=== PATIENT | female | born 1965 | race American Indian/Alaskan Native ===

== ENCOUNTER 2021-12-13 11:34 | Inpatient (IN) | payer SELFPAY ==
--- NOTE | 2021-12-13 13:52 | Event Note ---
ED Screening Note ED Screening Note: jyoti morphine tyler meds metformin 500 bid banophen 25 bid duloxetine er 30 daily comes in out of metformin for 1 week bg 94 pt having difficulty answering questions no focal motor def recent tx for uti - has finished bottle of amox on her person lives with sister post menopausal pmh dm obese psh T/A This initial assessment/diagnostic orders/clinical plan/treatment(s) is/are subject to change based on patients health status, clinical progression and re- assessment by fellow clinical providers in the ED. Further treatment and workup at subsequent clinical providers discretion. Patient/guardian urged not to elope from the ED as their condition may be serious if not clinically assessed and managed. Initial orders include: labs ct ua
--- NOTE | 2021-12-13 14:41 | XRay Report ---
CHEST 2 VIEWS INDICATION / CLINICAL INFORMATION: weakness. COMPARISON: None available. FINDINGS: SUPPORT DEVICES: None. HEART / MEDIASTINUM: No significant abnormality. LUNGS / PLEURA: No significant pulmonary or pleural abnormality. No pneumothorax. ADDITIONAL FINDINGS: No significant additional findings. IMPRESSION: 1. No acute findings. Signer Name: Rafat Rubio MD Signed: 12/13/2021 2:37 PM Workstation Name: [id number]
[2021-12-13 14:45] LABS: Basophils # (Auto) 0.1 K/mm3 (0.0-0.1); Eosinophils # (Auto) 0.1 K/mm3 (0.0-0.4); Eosinophils % (Auto) 1.3 % (0.0-4.3); Hematocrit 33.6 % (30.3-42.9); Hemoglobin 9.9 gm/dl (10.1-14.3); Lymphocytes # (Auto) 2.5 K/mm3 (1.2-5.4); Lymphocytes % (Auto) 39.5 % (13.4-35.0); Mean Corpuscular HGB Conc 30 % (30-34); Mean Corpuscular Volume 69 fl (79-97); Monocytes # (Auto) 0.6 K/mm3 (0.0-0.8); Monocytes % (Auto) 9.1 % (0.0-7.3); Platelet Count 152 K/mm3 (140-440); Red Cell Distribution Width 20.7 % (13.2-15.2)
[2021-12-13 15:47] LABS: Alanine Aminotransferase 9 units/L (7-56); Albumin 4.3 g/dL (3.9-5); BUN/Creatinine Ratio 10; Blood Urea Nitrogen 9 mg/dL (7-17); Calcium 8.7 mg/dL (8.4-10.2); Hemolysis Index 3
[2021-12-13] MEDS ORDERED: POTASSIUM CHLORIDE ER 20 MEQ TAB PO ONE (16:04)
--- NOTE | 2021-12-13 16:21 | Emergency Department Report ---
HPI - General Chief Complaint: Altered Mental Status Time Seen by Provider: 12/13/21 13:48 - HPI HPI: 56-year-old female with history of depression/bipolar disorder and DM2 who presented today due to 1 week of lightheadedness and generalized weakness. The patient states that the symptoms started when she ran out of her Metformin approximately 1 week ago. She has had generalized nausea but no vomiting. She feels very weak and lightheaded as if she is about to pass out. She was recently treated for UTI with Cefpodoxime which she has since finished. She denies any recent traumatic injury. The patient also says she has had some word finding difficulty/confusion over this period of time but this is only elicited from her when prompted. Apparently when she was seen by the FAST FOOD WORKER she had word finding difficulty which resolved after being given juice. Nonetheless she continues to show word finding difficulty and confusion. She denies any associ ated chest pain, shortness of breath, cough, abdominal pain, back pain, new focal weakness or sensory changes but says she feels generally weak. Denies dysuria, or any other complaints. She is not fully vaccinated against COVID-19. Further details of the HPI are limited due to the patient's current clinical condition. ED Past Medical Hx - Past Medical History Previous Medical History?: Yes Hx Diabetes: Yes Hx Psychiatric Treatment: Yes ED Review of Systems ROS: Stated complaint: BODY PAIN Other details as noted in HPI Comment: All other systems reviewed and negative Constitutional: weakness. denies: chills, fever Eyes: denies: eye pain, vision change ENT: denies: throat pain, congestion Respiratory: denies: cough, shortness of breath Cardiovascular: denies: chest pain, palpitations Gastrointestinal: nausea. denies: abdominal pain, vomiting Genitourinary: denies: dysuria, frequency Musculoskeletal: denies: back pain, joint swelling Skin: denies: rash, lesions Neurological: confusion, other (Word finding difficulty, Lightheadedness). denies: headache, weakness, numbness Hematological/Lymphatic: denies: easy bleeding Physical Exam - Physical Exam Vital Signs: Vital Signs 12/13/21 13:55 Temperature 98.2 F Pulse Rate 74 Respiratory 18 Rate Blood Pressure 148/89 [Right] O2 Sat by Pulse 99 Oximetry Physical Exam: GENERAL: Well developed and well nourished. No acute distress HEAD: Normocephalic. No obvious signs of trauma. ENT: Slightly dry mucous membranes. EYES: Extraocular movements are intact. Pupils are equal round and reactive to light bilaterally NECK: Supple. Full ROM is intact. Trachea is midline. LUNGS: Nonlabored breathing. Equal chest rise bilaterally. Clear to auscultation bilaterally. CARDIOVASCULAR: Regular rate and rhythm. No murmurs or rubs. VASCULAR: Cap refill < 2 seconds ABDOMEN: Abdomen is soft and nondistended. There is no significant tenderness, guarding or rebound. SKIN: Skin is warm and dry NEURO: Patient is awake, alert but very confused. There is right facial droop with flattening of the nasolabial fold on the right without involvement of the upper face. Otherwise millwright helper II-XII grossly intact. There is weakness of the left upper and lower extremities but no drift on exam. Normal sensation throughout. Noted to have slight dysarthria and word finding difficulty. MUSCULOSKELETAL: No obvious deformities. No significant tenderness. Normal ROM throughout. BACK/SPINE: No midline tenderness or step-offs of the C/T/L spine. No costovertebral angle tenderness. ED Course Vital Signs 12/13/21 13:55 Temperature 98.2 F Pulse Rate 74 Respiratory 18 Rate Blood Pressure 148/89 [Right] O2 Sat by Pulse 99 Oximetry ED Medical Decision Making - Lab Data Result diagrams: 12/13/21 17:33 12/13/21 14:15 Lab Results 12/13/21 12/13/21 12/13/21 Range/Units 13:47 14:15 14:15 WBC 6.4 (4.5-11.0) K/mm3 RBC 4.90 (3.65-5.03) M/mm3 Hgb 9.9 L (10.1-14.3) gm/dl Hct 33.6 (30.3-42.9) % MCV 69 L (79-97) fl MCH 20 L (28-32) pg MCHC 30 (30-34) % RDW 20.7 H (13.2-15.2) % Plt Count 152 (140-440) K/mm3 Lymph % (Auto) 39.5 H (13.4-35.0) % [place] % (Auto) 9.1 H (0.0-7.3) % Eos % (Auto) 1.3 (0.0-4.3) % Baso % (Auto) 1.0 (0.0-1.8) % Lymph # (Auto) 2.5 (1.2-5.4) K/mm3 [place] # (Auto) 0.6 (0.0-0.8) K/mm3 Eos # (Auto) 0.1 (0.0-0.4) K/mm3 Baso # (Auto) 0.1 (0.0-0.1) K/mm3 Seg Neutrophils % 49.1 (40.0-70.0) % Seg Neutrophils # 3.1 (1.8-7.7) K/mm3 PT (12.2-14.9) Sec. INR (0.87-1.13) APTT (24.2-36.6) Sec. Thrombin Time (15.1-19.6) Sec. Sodium 142 (137-145) mmol/L Potassium 3.0 L (3.6-5.0) mmol/L Chloride 105.9 (98-107) mmol/L Carbon Dioxide 23 (22-30) mmol/L Anion Gap 16 mmol/L BUN 9 (7-17) mg/dL Creatinine 0.9 (0.6-1.2) mg/dL Estimated GFR > 60 ml/min BUN/Creatinine Ratio 10 % Glucose 105 H (65-100) mg/dL POC Glucose 94 (70-105) mg/dL Calcium 8.7 (8.4-10.2) mg/dL Magnesium (1.7-2.3) mg/dL Total Bilirubin 0.20 (0.1-1.2) mg/dL AST 13 (5-40) units/L ALT 9 (7-56) units/L Alkaline Phosphatase 50 (35-129) units/L Ammonia (25-60) umol/L Total Creatine Kinase (30-135) units/L CK-MB (CK-2) (0.0-4.0) ng/mL CK-MB (CK-2) Rel Index (0-4) Troponin T < 0.010 (0.00-0.029) ng/mL Total Protein 8.2 (6.3-8.2) g/dL Albumin 4.3 (3.9-5) g/dL Albumin/Globulin Ratio 1.1 % TSH (0.270-4.200) mlU/mL Salicylates (2.8-20.0) mg/dL Acetaminophen (10.0-30.0) ug/mL Plasma/Serum Alcohol (0-0.07) % 12/13/21 12/13/21 12/13/21 Range/Units 14:15 15:25 16:10 WBC (4.5-11.0) K/mm3 RBC (3.65-5.03) M/mm3 Hgb (10.1-14.3) gm/dl Hct (30.3-42.9) % MCV (79-97) fl MCH (28-32) pg MCHC (30-34) % RDW (13.2-15.2) % Plt Count (140-440) K/mm3 Lymph % (Auto) (13.4-35.0) % [place] % (Auto) (0.0-7.3) % Eos % (Auto) (0.0-4.3) % Baso % (Auto) (0.0-1.8) % Lymph # (Auto) (1.2-5.4) K/mm3 [place] # (Auto) (0.0-0.8) K/mm3 Eos # (Auto) (0.0-0.4) K/mm3 Baso # (Auto) (0.0-0.1) K/mm3 Seg Neutrophils % (40.0-70.0) % Seg Neutrophils # (1.8-7.7) K/mm3 PT (12.2-14.9) Sec. INR (0.87-1.13) APTT (24.2-36.6) Sec. Thrombin Time (15.1-19.6) Sec. Sodium (137-145) mmol/L Potassium (3.6-5.0) mmol/L Chloride (98-107) mmol/L Carbon Dioxide (22-30) mmol/L Anion Gap mmol/L BUN (7-17) mg/dL Creatinine (0.6-1.2) mg/dL Estimated GFR ml/min BUN/Creatinine Ratio % Glucose (65-100) mg/dL POC Glucose 96 (70-105) mg/dL Calcium (8.4-10.2) mg/dL Magnesium 2.10 (1.7-2.3) mg/dL Total Bilirubin (0.1-1.2) mg/dL AST (5-40) units/L ALT (7-56) units/L Alkaline Phosphatase (35-129) units/L Ammonia (25-60) umol/L Total Creatine Kinase (30-135) units/L CK-MB (CK-2) (0.0-4.0) ng/mL CK-MB (CK-2) Rel Index (0-4) Troponin T (0.00-0.029) ng/mL Total Protein (6.3-8.2) g/dL Albumin (3.9-5) g/dL Albumin/Globulin Ratio % TSH 0.977 (0.270-4.200) mlU/mL Salicylates (2.8-20.0) mg/dL Acetaminophen (10.0-30.0) ug/mL Plasma/Serum Alcohol (0-0.07) % 12/13/21 12/13/21 12/13/21 Range/Units 17:33 17:33 17:33 WBC 5.0 (4.5-11.0) K/mm3 RBC 4.87 (3.65-5.03) M/mm3 Hgb 9.8 L (10.1-14.3) gm/dl Hct 33.5 (30.3-42.9) % MCV 69 L (79-97) fl MCH 20 L (28-32) pg MCHC 29 L (30-34) % RDW 20.7 H (13.2-15.2) % Plt Count 154 (140-440) K/mm3 Lymph % (Auto) 44.7 H (13.4-35.0) % [place] % (Auto) 10.4 H (0.0-7.3) % Eos % (Auto) 1.5 (0.0-4.3) % Baso % (Auto) 1.2 (0.0-1.8) % Lymph # (Auto) 2.2 (1.2-5.4) K/mm3 [place] # (Auto) 0.5 (0.0-0.8) K/mm3 Eos # (Auto) 0.1 (0.0-0.4) K/mm3 Baso # (Auto) 0.1 (0.0-0.1) K/mm3 Seg Neutrophils % 42.2 (40.0-70.0) % Seg Neutrophils # 2.1 (1.8-7.7) K/mm3 PT 13.9 (12.2-14.9) Sec. INR 0.96 (0.87-1.13) APTT 32.0 (24.2-36.6) Sec. Thrombin Time 16.3 (15.1-19.6) Sec. Sodium (137-145) mmol/L Potassium (3.6-5.0) mmol/L Chloride (98-107) mmol/L Carbon Dioxide (22-30) mmol/L Anion Gap mmol/L BUN (7-17) mg/dL Creatinine (0.6-1.2) mg/dL Estimated GFR ml/min BUN/Creatinine Ratio % Glucose (65-100) mg/dL POC Glucose (70-105) mg/dL Calcium (8.4-10.2) mg/dL Magnesium (1.7-2.3) mg/dL Total Bilirubin (0.1-1.2) mg/dL AST (5-40) units/L ALT (7-56) units/L Alkaline Phosphatase (35-129) units/L Ammonia (25-60) umol/L Total Creatine Kinase 275 H (30-135) units/L CK-MB (CK-2) 4.5 H (0.0-4.0) ng/mL CK-MB (CK-2) Rel Index 1.6 (0-4) Troponin T (0.00-0.029) ng/mL Total Protein (6.3-8.2) g/dL Albumin (3.9-5) g/dL Albumin/Globulin Ratio % TSH (0.270-4.200) mlU/mL Salicylates (2.8-20.0) mg/dL Acetaminophen (10.0-30.0) ug/mL Plasma/Serum Alcohol (0-0.07) % 12/13/21 12/13/21 12/13/21 Range/Units 17:33 17:33 17:33 WBC (4.5-11.0) K/mm3 RBC (3.65-5.03) M/mm3 Hgb (10.1-14.3) gm/dl Hct (30.3-42.9) % MCV (79-97) fl MCH (28-32) pg MCHC (30-34) % RDW (13.2-15.2) % Plt Count (140-440) K/mm3 Lymph % (Auto) (13.4-35.0) % [place] % (Auto) (0.0-7.3) % Eos % (Auto) (0.0-4.3) % Baso % (Auto) (0.0-1.8) % Lymph # (Auto) (1.2-5.4) K/mm3 [place] # (Auto) (0.0-0.8) K/mm3 Eos # (Auto) (0.0-0.4) K/mm3 Baso # (Auto) (0.0-0.1) K/mm3 Seg Neutrophils % (40.0-70.0) % Seg Neutrophils # (1.8-7.7) K/mm3 PT (12.2-14.9) Sec. INR (0.87-1.13) APTT (24.2-36.6) Sec. Thrombin Time (15.1-19.6) Sec. Sodium (137-145) mmol/L Potassium (3.6-5.0) mmol/L Chloride (98-107) mmol/L Carbon Dioxide (22-30) mmol/L Anion Gap mmol/L BUN (7-17) mg/dL Creatinine (0.6-1.2) mg/dL Estimated GFR ml/min BUN/Creatinine Ratio % Glucose (65-100) mg/dL POC Glucose (70-105) mg/dL Calcium (8.4-10.2) mg/dL Magnesium (1.7-2.3) mg/dL Total Bilirubin (0.1-1.2) mg/dL AST (5-40) units/L ALT (7-56) units/L Alkaline Phosphatase (35-129) units/L Ammonia 17.0 L (25-60) umol/L Total Creatine Kinase (30-135) units/L CK-MB (CK-2) (0.0-4.0) ng/mL CK-MB (CK-2) Rel Index (0-4) Troponin T (0.00-0.029) ng/mL Total Protein (6.3-8.2) g/dL Albumin (3.9-5) g/dL Albumin/Globulin Ratio % TSH (0.270-4.200) mlU/mL Salicylates < 0.3 L (2.8-20.0) mg/dL Acetaminophen (10.0-30.0) ug/mL Plasma/Serum Alcohol < 0.01 (0-0.07) % 12/13/21 12/13/21 Range/Units 17:33 22:53 WBC (4.5-11.0) K/mm3 RBC (3.65-5.03) M/mm3 Hgb (10.1-14.3) gm/dl Hct (30.3-42.9) % MCV (79-97) fl MCH (28-32) pg MCHC (30-34) % RDW (13.2-15.2) % Plt Count (140-440) K/mm3 Lymph % (Auto) (13.4-35.0) % [place] % (Auto) (0.0-7.3) % Eos % (Auto) (0.0-4.3) % Baso % (Auto) (0.0-1.8) % Lymph # (Auto) (1.2-5.4) K/mm3 [place] # (Auto) (0.0-0.8) K/mm3 Eos # (Auto) (0.0-0.4) K/mm3 Baso # (Auto) (0.0-0.1) K/mm3 Seg Neutrophils % (40.0-70.0) % Seg Neutrophils # (1.8-7.7) K/mm3 PT (12.2-14.9) Sec. INR (0.87-1.13) APTT (24.2-36.6) Sec. Thrombin Time (15.1-19.6) Sec. Sodium (137-145) mmol/L Potassium (3.6-5.0) mmol/L Chloride (98-107) mmol/L Carbon Dioxide (22-30) mmol/L Anion Gap mmol/L BUN (7-17) mg/dL Creatinine (0.6-1.2) mg/dL Estimated GFR ml/min BUN/Creatinine Ratio % Glucose (65-100) mg/dL POC Glucose (70-105) mg/dL Calcium (8.4-10.2) mg/dL Magnesium (1.7-2.3) mg/dL Total Bilirubin (0.1-1.2) mg/dL AST (5-40) units/L ALT (7-56) units/L Alkaline Phosphatase (35-129) units/L Ammonia (25-60) umol/L Total Creatine Kinase (30-135) units/L CK-MB (CK-2) (0.0-4.0) ng/mL CK-MB (CK-2) Rel Index (0-4) Troponin T < 0.010 (0.00-0.029) ng/mL Total Protein (6.3-8.2) g/dL Albumin (3.9-5) g/dL Albumin/Globulin Ratio % TSH (0.270-4.200) mlU/mL Salicylates (2.8-20.0) mg/dL Acetaminophen 5.0 L (10.0-30.0) ug/mL Plasma/Serum Alcohol (0-0.07) % - EKG Data -: EKG Interpreted by Id - EKG Data 12/13/21 18:25 Normal sinus rhythm. Normal axis. Short MO interval. Otherwise normal intervals. No ectopy. Nonspecific T wave inversions. No significant ST seg ment abnormalities. - Radiology Data Radiology results: report reviewed - Medical Decision Making 56-year-old female with history of diabetes and recurrent UTIs in the past presenting with 1 week of lightheadedness after running out of Metformin. She is afebrile and with normal vital signs. When I assessed the patient, she was noted to have right facial droop with flattening of the nasolabial fold on the right and no involvement of the upper face as well as left upper extremity and left lower extremity weakness without drift. She also is confused and has word finding difficulty. Her NIH stroke scale score is 4. She was evaluated by Lorene LEAL just prior to my evaluation and at that time she did not have the facial droop. Therefore stroke alert was initiated with full set of labs and CT as well as CTA of the head and neck. Last known normal time was 1352 and evaluated by Lorene. Spoke with Dr. Pulido of teleneurology at 4:25 PM. She states given the unclear nature of when the symptoms began patient is not eligible for TPA. Labs reveal no significant leukocytosis or anemia. Kidney function is normal. There is hypokalemia with potassium of 3.0 which we will replete. Magnesium is normal. Troponin is negative. TSH is normal. Urinalysis shows 133 WBCs and 90 RBCs consistent with UTI. CT of the head shows no acute abnormalities. CTA of the head and neck showed no acute abnormalities. CT of the abdomen pelvis shows no acute abnormalities with incidental finding of supraumbilical hernia containing fat only. Given history of recurrent infections I have ordered IV cefepime. She will need to be admitted given her metabolic encephalopathy and possible stroke as well as for management of her hypokalemia and UTI which were explained to the patient who expressed understanding agreement Spoke with Dr. Santos the on-call hospitalist regarding the case and accepts patient for admission will assume care. Critical Care Time: Yes Critical care time in (mins) excluding proc time.: 35 Critical care attestation.: If time is entered above; I have spent that time in minutes in the direct care of this critically ill patient, excluding procedure time. Critical care time was spent in evaluation/assessment, work-up, and management of possible stroke requiring stroke alert initiation as well as electrolyte abnormalities requiring repletion, discussion with specialist, and repeat and frequent reassessment. ED Disposition Clinical Impression: UTI (urinary tract infection), Metabolic encephalopathy, Stroke, Hypokalemia Disposition: 09 ADMITTED INPATIENT Is pt being admited?: Yes Condition: Stable - Assessment Assessment Interval: Baseline - Level of Consciousness 1a. Level of Consciousness: alert/keenly responsive - LOC Questions 1b. LOC Questions: answers 1 question correctly - LOC Command 1c. LOC Commands: performs tasks correctly - Best Gaze 2. Best Gaze: normal - Visual 3. Visual: no visual loss - Facial Palsy 4. Facial Palsy: minor paralysis - Motor Arm 5a. Motor Arm Left: no drift 5b. Motor Arm Right: no drift - Motor Leg 6a. Motor Leg Left: no drift 6b. Motor Leg Right: no drift - Limb Ataxia 7. Limb Ataxia: absent - Sensory 8. Sensory: normal - Best Language 9. Best Language: mild/moderate aphasia - Dysarthria 10. Dysarthria: mild/moderate dysarthria - Extinction and Inattention 11. Extinction/Inattention: no abnormality - Scoring Total Score: 4 Stroke Severity: Minor Stroke
--- NOTE | 2021-12-13 16:27 | Emergency Department Report ---
Blank Doc - Documentation Documentation: [facility] Consult Note # Demographics Consult Type: General Neurology Patient Location: Emergency Room First Name: Elba Last Name: Dakotah Date of : 1965 Age: 56 Gender: Female Facility: [facility] Time of Initial Page ( Time): 12/13/2021, 16:18 Time of Return Call ( Time): 12/13/2021, 16:18 # HPI History: 56yo F presents with feeling lightheaded like she is going to pass out for the last week. some difficulty speaking. gen weakness. nausea # Scores Time of exam and NIHSS ( Time): 12/13/2021, 16:18 Level of Consciousness 1a: [0] = Alert; keenly responsive LOC Questions 1b: [0] = Answers both questions correctly LOC Commands 1c: [0] = Performs both tasks correctly Best Gaze 2: [0] = Normal Visual 3: [0] = No visual loss Facial Palsy 4: [1] = Minor paralysis Motor Arm Left 5a: [0] = No drift Motor Arm Right 5b: [0] = No drift Motor Leg Left 6a: [0] = No drift Motor Leg Right 6b: [0] = No drift Limb Ataxia 7: [0] = Absent Sensory 8: [0] = Normal Best Language 9: [0] = No aphasia Dysarthria 10: [0] = Normal Extinction and Inattention 11: [0] = No abnormality NIHSS Total: 1 # Assessment Impression: near syncopal symptoms, facial droop # Plan Thrombolytic/Intervention: NOT IV Thrombolysis or IA Intervention candidate Thrombolytic Exclusion: > 4.5 hours Intraarterial Exclusion: clinically consistent with small vessel disease Imaging: (urgency: STAT): CT Angiogram Head and CT Angiogram Neck AND call back with results if abnormal Imaging: (urgency: routine): MRI Brain without contrast Other: I have discussed my recommendations with the referring provider # [employer] Telemedicine: Interactive 2 way audio and visual telecommunication technology was utilized during this visit
[2021-12-13 17:12] LABS: Bacteria,Urine 1+ /HPF (Negative); Bilirubin,Urine NEG (Negative); Blood,Urine SM (Negative); Color,Urine Yellow (Yellow); Mucus,Urine 1+ /HPF; Urobilinogen,Urine < 2.0 mg/dL (<2.0)
[2021-12-13 17:18] LABS: Amphetamine Screen,Urine Negative; Benzodiazepines Screen,Urine Negative; Cannabinoid Screen,Urine Negative; Cocaine Screen,Urine Negative; Methadone Screen,Urine Negative; Opiate Screen,Urine Negative
--- NOTE | 2021-12-13 17:51 | Cat Scan Report ---
CT head/brain wo con INDICATION / CLINICAL INFORMATION: 56 years Female; Stroke symptoms. TECHNIQUE: Routine CT head without contrast. All CT scans at this location are performed using CT dos e reduction for ALARA by means of automated exposure control. COMPARISON: None. FINDINGS: BRAIN / INTRACRANIAL CONTENTS: The brain parenchyma appears to demonstrate appropriate attenuation fo r age. The ventricular system is within normal limits in size and configuration. There is no clear CT evidence of acute intracranial hemorrhage or significant mass effect. ORBITS: No significant abnormality of visualized orbits. SINUSES / MASTOIDS: There is an incidental 5 mm osteoma within the right ethmoid sinus. CRANIOCERVICAL JUNCTION: No significant abnormality. ADDITIONAL FINDINGS: None. IMPRESSION: 1. There is no CT evidence of acute intracranial process. Signer Name: Rony Rubalcava MD Signed: 12/13/2021 5:47 PM Workstation Name: [id number]
--- NOTE | 2021-12-13 17:51 | Cat Scan Report ---
CT abdomen pelvis wo con INDICATION / CLINICAL INFORMATION: assess for kidney stones. TECHNIQUE: Axial CT imaging of abdomen and pelvis was obtained without contrast. Coronal and sagittal reformatte d imaging obtained and reviewed. All CT scans at this location are performed using CT dose reduction for ALARA by means of automated exposure control. COMPARISON: None available. FINDINGS: CT abdomen without contrast demonstrates grossly normal appearance of the liver, spleen, pancreas, ki dneys, and adrenal glands for noncontrast exam. Gallbladder is grossly unremarkable. Abdominal aorta is normal caliber. No intrarenal calculi or hydronephrosis noted. CT pelvis without contrast does not demonstrate pelvic mass, free fluid, or focal inflammatory change . A normal appendix is present in the right lower quadrant. There are a few large diverticula scatter ed throughout the colon. The GI tract is otherwise grossly normal. Urinary bladder is mostly decompre ssed but no obvious bladder calculi are visible. Incidentally noted is a small supraumbilical hernia containing only fat, just to the right of midline . Visualized lung bases do not demonstrate acute pulmonary or pleural disease. Review of skeletal structures demonstrates spondylitic change but no acute osseous abnormality. IMPRESSION: 1. No acute finding within the abdomen or pelvis. 2. Specifically no urinary tract calculi are present. 3. Incidental finding of supraumbilical abdominal wall hernia containing only fat. 4. Scattered diverticulosis. Signer Name: Lakeshia Corbett MD Signed: 12/13/2021 5:47 PM Workstation Name: [id number]
[2021-12-13 17:52] LABS: Basophils # (Auto) 0.1 K/mm3 (0.0-0.1); Basophils % (Auto) 1.2 % (0.0-1.8); Eosinophils # (Auto) 0.1 K/mm3 (0.0-0.4); Eosinophils % (Auto) 1.5 % (0.0-4.3); Lymphocytes # (Auto) 2.2 K/mm3 (1.2-5.4); Lymphocytes % (Auto) 44.7 % (13.4-35.0); Mean Corpuscular HGB Conc 29 % (30-34); Monocytes # (Auto) 0.5 K/mm3 (0.0-0.8); Monocytes % (Auto) 10.4 % (0.0-7.3); Platelet Count 154 K/mm3 (140-440); Red Blood Count 4.87 M/mm3 (3.65-5.03)
[2021-12-13 17:54] LABS: Hematocrit 33.5 % (30.3-42.9); Hemoglobin 9.8 gm/dl (10.1-14.3); Mean Corpuscular Volume 69 fl (79-97); Red Cell Distribution Width 20.7 % (13.2-15.2)
--- NOTE | 2021-12-13 17:54 | Cat Scan Report ---
CT angio neck INDICATION / CLINICAL INFORMATION: 56 years Female; stroke sx. TECHNIQUE: Thin cut axial images obtained through the head during IV bolus contrast administration. S agittal, coronal, and 3 plane MIP reconstructions performed by the technologist. NASCET type criteria used evaluate stenoses. All CT scans at this location are performed using CT dose reduction for ALAR A by means of automated exposure control. COMPARISON: None available. FINDINGS: CAROTID ARTERIES: There is no significant stenosis involving cervical carotid arteries by NASCET crit eria. The carotid bifurcations are widely patent. VERTEBRAL ARTERIES: The left vertebral artery arises directly from the aortic arch; a developmental v ariant. There is no significant focal narrowing of the vertebral arteries. ARCH: There is no significant stenosis of the arch of vessels. ADDITIONAL FINDINGS: Remainder of the surrounding soft tissues are grossly normal. IMPRESSION: There is no significant stenosis involving cervical carotid or vertebral arteries by NASCET to criter ia. Signer Name: Rony Rubalcava MD Signed: 12/13/2021 5:50 PM Workstation Name: [id number]
[2021-12-13] MEDS ORDERED: CEFEPIME/NS 2 GM/100 ML 2 GM/100 ML BAG IV ONE (17:56)
--- NOTE | 2021-12-13 17:59 | Cat Scan Report ---
CT angio head INDICATION / CLINICAL INFORMATION: 56 years Female; stroke sx. TECHNIQUE: Thin cut axial images obtained through the head during IV bolus contrast administration. S agittal, coronal, and 3 plane MIP reconstructions performed by the technologist. NASCET type criteria used evaluate stenoses. Automated exposure control utilized for radiation reduction purposes. COMPARISON: None available. FINDINGS: INTERNAL CAROTID ARTERIES: There is mild atherosclerotic calcification involving intracranial ICAs wi thout significant stenosis by NASCET criteria. 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 There is also relative developmental hypoplasia of the vertebral basilar system witho ut significant focal stenosis. CEREBRAL ARTERIES: There is no significant focal stenosis involving proximal cerebral arteries or adj acent segments at. ANEURYSM: None identified. ADDITIONAL FINDINGS: The dural venous sinuses opacify with contrast. IMPRESSION: There is no CTA evidence of large vessel occlusion. Signer Name: Rony Rubalcava MD Signed: 12/13/2021 5:55 PM Workstation Name: [id number]
[2021-12-13] MEDS ORDERED: SODIUM CHLORIDE 0.9% 1000 ML 1,000 ML IV ONE (18:00)
[2021-12-13 18:11] LABS: INR 0.96 (0.87-1.13); Thrombin Time 16.3 Sec. (15.1-19.6)
[2021-12-13 18:14] LABS: Creatine Kinase MB 4.5 ng/mL (0.0-4.0)
[2021-12-13] MEDS ORDERED: ONDANSETRON 4 MG/2 ML INJ IV PRN (23:31)
[2021-12-13] MEDS ORDERED: DEXTROSE 50% IN WATER (25GM) 50 ML SYRINGE IV PRN (23:31)
[2021-12-13] MEDS ORDERED: MORPHINE 2 MG/1 ML INJ IV PRN (23:38)
[2021-12-13] MEDS ORDERED: MORPHINE 4 MG/1 ML INJ IV PRN (23:38)
[2021-12-13] MEDS ORDERED: MAGNESIUM HYDROXIDE (MOM) ORAL LIQD UDC PO PRN (23:38)
--- NOTE | 2021-12-13 23:53 | History and Physical Report ---
History of Present Illness Date of examination: 12/13/21 Date of admission: 12/13/2021 Chief complaint: Lightheadedness Generalized weakness History of present illness: 56-year-old female with known history of bipolar disorder, diabetes mellitus presenting to the emergency room today complaining of generalized weakness and lightheadedness for 1 week. Patient indicates that symptoms started when she ran out of diabetic medication about a week ago. He has had some nausea but no vomiting. Patient indicates that she feels generally weak and lightheaded. She denies any fever or chills, no chest pain or shortness of breath, no headaches or diaphoresis. Denies any hematuria or dysuria. She indicates she was recently treated for UTI with Cefpodoxime. Patient denies any sick contacts and no recent travel. Denies any contact with anyone with COVID-19. She however is not fully vaccinated against COVID-19. Upon arrival in the emergency room patient was said to be dysarthric words came back to her baseline after awhile. She also had a mild facial droop which has since resolved. Work-up in the emergency room today significant findings were that of UTI on urinalysis. Chest x-ray, CT head, CTA head and neck were essentially unremarkable. CT abdomen and pelvis did not show any acute findings. Patient has been commenced on empiric IV antibiotics for the UTI. Past History Past Medical History: diabetes, hypertension Past Surgical History: denies: No surgical history Social history: denies: no significant social history Family history: denies: no significant family history Medications and Allergies Allergies Allergy/AdvReac Type Severity Reaction Status Date / Time Unable to Assess Allergy Verified 12/13/21 18:45 Active Meds: Active Medications Acetaminophen (Acetaminophen 325 Mg Tab) 650 mg PO Q4H PRN PRN Reason: Pain MILD(1-3)/Fever >100.5/VITAL Dextrose (Dextrose 50% In Water (25gm) 50 Ml Syringe) 50 ml IV Q30MIN PRN; Protocol PRN Reason: Hypoglycemia Sodium Chloride (Nacl 0.9% 1000 Ml) 1,000 mls @ 125 mls/hr IV DIRECT [facility] Cefepime HCl (Cefepime/Ns 2 Gm/100 Ml) 2 gm in 100 mls @ 200 mls/hr IV Q8H [facility]; Protocol Insulin Human Lispro (Insulin Lispro 100 Unit/Ml) 0 unit SUB-Q ACHS [facility]; Protocol Magnesium Hydroxide (Magnesium Hydroxide (Mom) Oral Liqd Udc) 30 ml PO Q4H PRN PRN Reason: Constipation Morphine Sulfate (Morphine 2 Mg/1 Ml Inj) 2 mg IV Q4H PRN PRN Reason: Pain, Moderate (4-6) Morphine Sulfate (Morphine 4 Mg/1 Ml Inj) 4 mg IV Q4H PRN PRN Reason: Pain , Severe (7-10) Ondansetron HCl (Ondansetron 4 Mg/2 Ml Inj) 4 mg IV Q8H PRN PRN Reason: Nausea And Vomiting Sodium Chloride (Sodium Chloride 0.9% 10 Ml Flush Syringe) 10 ml IV BID [facility] Sodium Chloride (Sodium Chloride 0.9% 10 Ml Flush Syringe) 10 ml IV PRN PRN PRN Reason: LINE FLUSH Review of Systems Constitutional: no fever, no chills, no weakness Ears, nose, mouth and throat: no nasal congestion, no sore throat Cardiovascular: no chest pain, no palpitations Respiratory: no cough, no shortness of breath Gastrointestinal: no abdominal pain, no nausea, no vomiting, no diarrhea Genitourinary Female: no pelvic pain, no flank pain, no dysuria, no hematuria Musculoskeletal: no neck pain, no low back pain Integumentary: no rash, no pruritis Neurological: other (Lightheadedness), no headaches, no confusion Psychiatric: no anxiety, no depression Exam - Constitutional Vitals: Temp Pulse Resp BP Pulse Ox 98.2 F 65 14 115/75 100 12/13/21 13:55 12/13/21 17:30 12/13/21 17:30 12/13/21 17:30 12/13/21 17:30 General appearance: Present: no acute distress, well-nourished - EENT Eyes: Present: PERRL, EOM intact. Absent: scleral icterus ENT: hearing intact, clear oral mucosa, dentition normal - Neck Neck: Present: supple, normal ROM - Respiratory Respiratory effort: normal Respiratory: bilateral: CTA - Cardiovascular Rhythm: regular Heart Sounds: Present: S1 & S2. Absent: gallop, systolic murmur, diastolic murmur - Extremities Extremities: no ischemia, pulses intact, pulses symmetrical, No edema, normal temperature, Full ROM Peripheral Pulses: within normal limits - Abdominal General gastrointestinal: Present: soft, non-tender, non-distended, normal bowel sounds. Absent: mass - Integumentary Integumentary: Present: clear, warm, dry, normal turgor - Musculoskeletal Musculoskeletal: strength equal bilaterally - Psychiatric Psychiatric: appropriate mood/affect, intact judgment & insight, memory intact, cooperative HEART Score - HEART Score Troponin: Troponin T < 0.010 ng/mL (0.00-0.029) 12/13/21 22:53 Results - Labs CBC & Chem 7: 12/14/21 04:23 12/14/21 04:23 Labs: Abnormal lab results 12/13/21 12/13/21 12/13/21 Range/Units 14:15 14:15 17:33 Hgb 9.9 L 9.8 L (10.1-14.3) gm/dl MCV 69 L 69 L (79-97) fl MCH 20 L 20 L (28-32) pg MCHC 29 L (30-34) % RDW 20.7 H 20.7 H (13.2-15.2) % Lymph % (Auto) 39.5 H 44.7 H (13.4-35.0) % [place] % (Auto) 9.1 H 10.4 H (0.0-7.3) % Potassium 3.0 L (3.6-5.0) mmol/L Glucose 105 H (65-100) mg/dL Ammonia (25-60) umol/L Total Creatine Kinase (30-135) units/L CK-MB (CK-2) (0.0-4.0) ng/mL Urine WBC (Auto) (0.0-6.0) /HPF U Epithel Cells (Auto) (0-13.0) /HPF Salicylates (2.8-20.0) mg/dL Acetaminophen (10.0-30.0) ug/mL 12/13/21 12/13/21 12/13/21 Range/Units 17:33 17:33 17:33 Hgb (10.1-14.3) gm/dl MCV (79-97) fl MCH (28-32) pg MCHC (30-34) % RDW (13.2-15.2) % Lymph % (Auto) (13.4-35.0) % [place] % (Auto) (0.0-7.3) % Potassium (3.6-5.0) mmol/L Glucose (65-100) mg/dL Ammonia 17.0 L (25-60) umol/L Total Creatine Kinase 275 H (30-135) units/L CK-MB (CK-2) 4.5 H (0.0-4.0) ng/mL Urine WBC (Auto) (0.0-6.0) /HPF U Epithel Cells (Auto) (0-13.0) /HPF Salicylates < 0.3 L (2.8-20.0) mg/dL Acetaminophen (10.0-30.0) ug/mL 12/13/21 12/13/21 Range/Units 17:33 Unknown Hgb (10.1-14.3) gm/dl MCV (79-97) fl MCH (28-32) pg MCHC (30-34) % RDW (13.2-15.2) % Lymph % (Auto) (13.4-35.0) % [place] % (Auto) (0.0-7.3) % Potassium (3.6-5.0) mmol/L Glucose (65-100) mg/dL Ammonia (25-60) umol/L Total Creatine Kinase (30-135) units/L CK-MB (CK-2) (0.0-4.0) ng/mL Urine WBC (Auto) 133.0 H (0.0-6.0) /HPF U Epithel Cells (Auto) 20.0 H (0-13.0) /HPF Salicylates (2.8-20.0) mg/dL Acetaminophen 5.0 L (10.0-30.0) ug/mL Assessment and Plan - Patient Problems (1) Metabolic encephalopathy Current Visit: Yes Status: Acute Plan to address problem: Possibly secondary to the underlying infection versus possible CVA. We will monitor mental status. (2) Stroke Current Visit: Yes Status: Acute Plan to address problem: We will schedule patient for MRI of the brain, carotid Doppler and echocardiogram. Will request neurology evaluation.. (3) Hypokalemia Current Visit: Yes Status: Acute Plan to address problem: Potassium will be repleted and will monitor chemistry. (4) Diabetes mellitus Current Visit: Yes Status: Acute Plan to address problem: We will monitor Accu-Cheks. Patient placed on sliding scale insulin. (5) UTI (urinary tract infection) Current Visit: Yes Status: Acute Plan to address problem: Patient placed on empiric IV antibiotics. Await culture results. (6) Bipolar disorder Current Visit: Yes Status: Acute Plan to address problem: Continue routine home medications. (7) DVT prophylaxis Current Visit: Yes Status: Acute Plan to address problem: Patient placed on subcutaneous heparin. (8) Full code status Current Visit: Yes Status: Acute Plan to address problem: Patient is full code.
[2021-12-13] MEDS ORDERED: DEXTROSE 10% *Hypoglycemia IV PRN (23:57)
[2021-12-14] MEDS ORDERED: CEFEPIME/NS 2 GM/100 ML 2 GM/100 ML BAG IV SCH ×2 (02:00→12:00)
[2021-12-14] MEDS: SODIUM CHLORIDE 0.9% 1000 ML 1,000 ML IV SCH ×2 (02:50→14:50)
[2021-12-14] MEDS: ACETAMINOPHEN 325 MG TAB PO PRN ×2 (03:05→21:18)
[2021-12-14 05:08] LABS: Basophils % (Auto) 0.8 % (0.0-1.8); Eosinophils # (Auto) 0.1 K/mm3 (0.0-0.4); Eosinophils % (Auto) 1.9 % (0.0-4.3); Lymphocytes % (Auto) 42.7 % (13.4-35.0); Mean Corpuscular HGB Conc 30 % (30-34); Monocytes # (Auto) 0.4 K/mm3 (0.0-0.8); Monocytes % (Auto) 9.3 % (0.0-7.3); Platelet Count 157 K/mm3 (140-440); Red Blood Count 4.89 M/mm3 (3.65-5.03)
[2021-12-14 05:12] LABS: Hematocrit 33.3 % (30.3-42.9); Hemoglobin 10.1 gm/dl (10.1-14.3); Mean Corpuscular Volume 68 fl (79-97); Red Cell Distribution Width 20.1 % (13.2-15.2)
[2021-12-14 05:21] LABS: BUN/Creatinine Ratio 10; Blood Urea Nitrogen 8 mg/dL (7-17); Calcium 8.3 mg/dL (8.4-10.2); Hemolysis Index 31
--- NOTE | 2021-12-14 08:37 | Consultation ---
History of Present Illness Consult date: 12/14/21 Reason for Consult: Lightheadness and dysarthia History of present illness: Lightheadedness Generalized weakness History of present illness: 56-year-old female with known history of bipolar disorder, diabetes mellitus presenting to the emergency room today complaining of generalized weakness and lightheadedness for 1 week. Patient indicates that symptoms started when she ran out of diabetic medication about a week ago. she has had some nausea but no vomiting. Patient indicates that she feels generally weak and lightheaded. According to her her suger at home was 99 before coming to hospital ,and 118 in ER she denied smoking or drinking , denied fever or focal weakness she is complains of back pain She denies any fever or chills, no chest pain or shortness of breath, no headaches or diaphoresis. Denies any hematuria or dysuria. She indicates she was recently treated for UTI with Cefpodoxime. Patient denies any sick contacts and no recent travel. Denies any contact with anyone with COVID-19. She however is not fully vaccinated against COVID-19. Upon arrival in the emergency room patient was said to be dysarthric words came back to her baseline after awhile. She also had a mild facial droop which has since resolved. Work-up in the emergency room today significant findings were that of UTI on urinalysis. Chest x-ray, CT head, CTA head and neck were essentially unremarkable. CT abdomen and pelvis did show diverticulosis and umbilical hernia but no acute findings . Patient has been commenced on empiric IV antibiotics for the UTI. Past History Past Medical History: diabetes, hypertension Past Surgical History: denies: No surgical history Social history: denies: no significant social history Family history: denies: no significant family history Medications and Allergies Allergies Allergy/AdvReac Type Severity Reaction Status Date / Time Unable to Assess Allergy Verified 12/13/21 18:45 Active Meds: Active Medications Acetaminophen (Acetaminophen 325 Mg Tab) 650 mg PO Q4H PRN PRN Reason: Pain MILD(1-3)/Fever >100.5/VITAL Dextrose (Dextrose 50% In Water (25gm) 50 Ml Syringe) 50 ml IV Q30MIN PRN; Protocol PRN Reason: Hypoglycemia Sodium Chloride (Nacl 0.9% 1000 Ml) 1,000 mls @ 125 mls/hr IV DIRECT [facility] Cefepime HCl (Cefepime/Ns 2 Gm/100 Ml) 2 gm in 100 mls @ 200 mls/hr IV Q8H [facility]; Protocol Insulin Human Lispro (Insulin Lispro 100 Unit/Ml) 0 unit SUB-Q ACHS [facility]; Protocol Magnesium Hydroxide (Magnesium Hydroxide (Mom) Oral Liqd Udc) 30 ml PO Q4H PRN PRN Reason: Constipation Morphine Sulfate (Morphine 2 Mg/1 Ml Inj) 2 mg IV Q4H PRN PRN Reason: Pain, Moderate (4-6) Morphine Sulfate (Morphine 4 Mg/1 Ml Inj) 4 mg IV Q4H PRN PRN Reason: Pain , Severe (7-10) Ondansetron HCl (Ondansetron 4 Mg/2 Ml Inj) 4 mg IV Q8H PRN PRN Reason: Nausea And Vomiting Sodium Chloride (Sodium Chloride 0.9% 10 Ml Flush Syringe) 10 ml IV BID [facility] Sodium Chloride (Sodium Chloride 0.9% 10 Ml Flush Syringe) 10 ml IV PRN PRN PRN Reason: LINE FLUSH Review of Systems Constitutional: no fever, no chills, no weakness Ears, nose, mouth and throat: no nasal congestion, no sore throat Cardiovascular: no chest pain, no palpitations Respiratory: no cough, no shortness of breath Gastrointestinal: no abdominal pain, no nausea, no vomiting, no diarrhea Genitourinary Female: no pelvic pain, no flank pain, no dysuria, no hematuria Musculoskeletal: no neck pain, no low back pain Integumentary: no rash, no pruritis Neurological: other (Lightheadedness), no headaches, no confusion Psychiatric: no anxiety, no depression Exam Past History Past Medical History: diabetes, hypertension Past Surgical History: denies: No surgical history Social history: denies: no significant social history Family history: denies: no significant family history Medications and Allergies Allergies Allergy/AdvReac Type Severity Reaction Status Date / Time Unable to Assess Allergy Verified 12/13/21 18:45 Active Meds: Active Medications Acetaminophen (Acetaminophen 325 Mg Tab) 650 mg PO Q4H PRN PRN Reason: Pain MILD(1-3)/Fever >100.5/VITAL Last Admin: 12/14/21 03:05 Dose: 650 mg Aspirin (Aspirin Ec 325 Mg Tab) 325 mg PO QDAY [facility] Atorvastatin Calcium (Atorvastatin 40 Mg Tab) 40 mg PO QHS [facility] Dextrose (Dextrose 10% *Hypoglycemia) 0 ml IV PRN PRN; Protocol PRN Reason: Hypoglycemia Sodium Chloride (Nacl 0.9% 1000 Ml) 1,000 mls @ 125 mls/hr IV DIRECT AL[facility]ON Last Admin: 12/14/21 02:50 Dose: 125 mls/hr Cefepime HCl (Cefepime/Ns 2 Gm/100 Ml) 2 gm in 100 mls @ 200 mls/hr IV Q12H [facility]; Protocol Insulin Human Lispro (Insulin Lispro 100 Unit/Ml) 0 unit SUB-Q ACHS [facility]; Protocol Magnesium Hydroxide (Magnesium Hydroxide (Mom) Oral Liqd Udc) 30 ml PO Q4H PRN PRN Reason: Constipation Morphine Sulfate (Morphine 2 Mg/1 Ml Inj) 2 mg IV Q4H PRN PRN Reason: Pain, Moderate (4-6) Morphine Sulfate (Morphine 4 Mg/1 Ml Inj) 4 mg IV Q4H PRN PRN Reason: Pain , Severe (7-10) Last Admin: 12/14/21 05:38 Dose: 4 mg Ondansetron HCl (Ondansetron 4 Mg/2 Ml Inj) 4 mg IV Q8H PRN PRN Reason: Nausea And Vomiting Sodium Chloride (Sodium Chloride 0.9% 10 Ml Flush Syringe) 10 ml IV BID [facility] Sodium Chloride (Sodium Chloride 0.9% 10 Ml Flush Syringe) 10 ml IV PRN PRN PRN Reason: LINE FLUSH Physical Examination - Vital Signs Vital Signs: Vital Signs Temp Pulse Resp BP Pulse Ox 98.2 F 74 18 148/89 99 12/13/21 13:55 12/13/21 13:55 12/13/21 13:55 12/13/21 13:55 12/13/21 13:55 - Constitutional General appearance: comfortable - EENT EENT: Present: PERRL, mucous membranes moist - Respiratory Respiratory: Present: chest non-tender, lungs clear, rhonchi - Cardiovascular Cardiovascular: Present: regular rate, normal S1, normal S2 Extremities: Present: no peripheral edema bilatateraly, no clubbing, cyanosis - Gastrointestinal Gastrointestinal: Present: normoactive bowel sounds - Integumentary Integumentary: Present: normal - Neurologic Cranial nerve examination: PERRL, EOMI, intact Speech examination: intact Sensorimotor examination: intact Detailed motor examination: grossly full strength in, other (refoielxes are suppressed , no clonus , planter is down going,gait is not done) Reflex and gait examination: intact - Level of Consciousness 1a. Level of Consciousness: alert/keenly responsive - LOC Questions 1b. LOC Questions: answers both correctly - LOC Command 1c. LOC Commands: performs tasks correctly - Best Gaze 2. Best Gaze: normal - Visual 3. Visual: no visual loss - Facial Palsy 4. Facial Palsy: normal symmetrical movement - Motor Arm 5a. Motor Arm Left: no drift 5b. Motor Arm Right: no drift - Motor Leg 6a. Motor Leg Left: no drift 6b. Motor Leg Right: no drift - Limb Ataxia 7. Limb Ataxia: absent - Sensory 8. Sensory: normal - Best Language 9. Best Language: no aphasia - Dysarthria 10. Dysarthria: normal - Extinction and Inattention 11. Extinction/Inattention: no abnormality - Scoring Total Score: 0 Stroke Severity: No Stroke Symptoms Results - Laboratory Findings CBC and BMP: 12/14/21 04:23 12/14/21 04:23 Abnormal Lab Findings: Abnormal Labs 12/13/21 12/13/21 12/13/21 14:15 14:15 17:33 Hgb 9.9 L 9.8 L MCV 69 L 69 L MCH 20 L 20 L MCHC 29 L RDW 20.7 H 20.7 H Lymph % (Auto) 39.5 H 44.7 H [place] % (Auto) 9.1 H 10.4 H Potassium 3.0 L Chloride Carbon Dioxide Glucose 105 H Calcium Ammonia Total Creatine Kinase CK-MB (CK-2) Urine WBC (Auto) U Epithel Cells (Auto) Salicylates Acetaminophen 12/13/21 12/13/21 12/13/21 17:33 17:33 17:33 Hgb MCV MCH MCHC RDW Lymph % (Auto) [place] % (Auto) Potassium Chloride Carbon Dioxide Glucose Calcium Ammonia 17.0 L Total Creatine Kinase 275 H CK-MB (CK-2) 4.5 H Urine WBC (Auto) U Epithel Cells (Auto) Salicylates < 0.3 L Acetaminophen 12/13/21 12/13/21 12/14/21 17:33 Unknown 04:23 Hgb MCV 68 L MCH 21 L MCHC RDW 20.1 H Lymph % (Auto) 42.7 H [place] % (Auto) 9.3 H Potassium Chloride Carbon Dioxide Glucose Calcium Ammonia Total Creatine Kinase CK-MB (CK-2) Urine WBC (Auto) 133.0 H U Epithel Cells (Auto) 20.0 H Salicylates Acetaminophen 5.0 L 12/14/21 04:23 Hgb MCV MCH MCHC RDW Lymph % (Auto) [place] % (Auto) Potassium Chloride 110.9 H Carbon Dioxide 21 L Glucose 101 H Calcium 8.3 L Ammonia Total Creatine Kinase CK-MB (CK-2) Urine WBC (Auto) U Epithel Cells (Auto) Salicylates Acetaminophen Assessment and Plan # Assessment and Plan 56-year-old female with known history of bipolar disorder, diabetes mellitus presenting to the emergency room today complaining of generalized weakness and lightheadedness for 1 week. Patient indicates that symptoms started when she ran out of diabetic medication about a week ago. He has had some nausea but no vomiting. Patient indicates that she feels generally weak and lightheaded. - Patient Problems # None specific complaint of weakness diffuse , she stopped taking her metaformin a week ago -exam is none focal with NIH#0 -CT brain is unremarkable -CTA brain and neck are unremarkable -she is started on ASA and Lipitor # Dizziness none specific -no nystagmus no vertigo -check orthostatic vital and HR -cardiac monitoring # R/O CVA -We will schedule patient for MRI of the brain, - echocardiogram. -A1c,LDL -started on ASA and Lipitor # Hypokalemia -Potassium will be repleted and will monitor chemistry. # Diabetes mellitus/ stopped medication -We will monitor Accu-Cheks. -Patient placed on sliding scale insulin. # UTI (urinary tract infection) -Patient placed on empiric IV antibiotics. -Await culture results. # Bipolar disorder -Continue routine home medications. # DVT prophylaxis -Patient placed on subcutaneous heparin. will follow
[2021-12-14] MEDS: INSULIN LISPRO 100 UNIT/ML SUB-Q SCH ×4 (09:27→22:25)
[2021-12-14] MEDS: ASPIRIN EC 325 MG TAB PO SCH (09:28)
--- NOTE | 2021-12-14 12:59 | Consultation ---
History of Present Illness - Reason for Consult Consult date: 12/14/21 recurrent UTI Requesting physician: FREDERICK MOJICA - History of Present Illness The patient is a 56-year-old female with bipolar disorder, diabetes mellitus, hypertension was admitted with generalized weakness, lightheadedness going on for a week. She was recently diagnosed with a UTI and was on oral antibiotics. She denied any fever or chills. She was noted to be dysarthric with concerns for stroke, she was admitted to the hospital. Infectious diseases was consulted for recurrent UTI because her urine showed significant ongoing pyuria. She has remained afebrile, labs showed no leukocytosis. She is feeling better, still with some headaches. Denies any urinary burning, reports vaginal discharge. Sexually active about 3 weeks ago in [place]. Review of Systems: General: no fevers,chills or rigors HEENT: no new visual disturbance Respiratory: No cough, sputum, hemoptysis or shortness of breath Cardiovascular: No chest pain, syncope Gastrointestinal: No nausea, vomiting or diarrhea Genitourinary: No dysuria or hematuria Musculoskeletal: No new or worsening neck pain or back pain Neurologic: No headaches, seizures Hematologic: No easy bruising or bleeding Endocrine: No night sweats or acute weight loss Skin: negative for rash, jaundice Psychiatric: No suicidal or homicidal ideation Past History Past Medical History: diabetes, hypertension Past Surgical History: denies: No surgical history Social history: denies: no significant social history Family history: denies: no significant family history Medications and Allergies Allergies Allergy/AdvReac Type Severity Reaction Status Date / Time morphine Allergy Severe confusion Verified 12/14/21 11:38 Active Meds: Active Medications Acetaminophen (Acetaminophen 325 Mg Tab) 650 mg PO Q4H PRN PRN Reason: Pain MILD(1-3)/Fever >100.5/VITAL Last Admin: 12/14/21 03:05 Dose: 650 mg Aspirin (Aspirin Ec 325 Mg Tab) 325 mg PO QDAY ALYSON Last Admin: 12/14/21 09:28 Dose: 325 mg Atorvastatin Calcium (Atorvastatin 40 Mg Tab) 40 mg PO QHS [facility] Dextrose (Dextrose 10% *Hypoglycemia) 0 ml IV PRN PRN; Protocol PRN Reason: Hypoglycemia Sodium Chloride (Nacl 0.9% 1000 Ml) 1,000 mls @ 125 mls/hr IV DIRECT ALYSON Last Admin: 12/14/21 02:50 Dose: 125 mls/hr Cefepime HCl (Cefepime/Ns 2 Gm/100 Ml) 2 gm in 100 mls @ 200 mls/hr IV Q12H [facility]; Protocol Insulin Human Lispro (Insulin Lispro 100 Unit/Ml) 0 unit SUB-Q ACHS [facility]; Protocol Last Admin: 12/14/21 09:27 Dose: Not Given Magnesium Hydroxide (Magnesium Hydroxide (Mom) Oral Liqd Udc) 30 ml PO Q4H PRN PRN Reason: Constipation Morphine Sulfate (Morphine 2 Mg/1 Ml Inj) 2 mg IV Q4H PRN PRN Reason: Pain, Moderate (4-6) Morphine Sulfate (Morphine 4 Mg/1 Ml Inj) 4 mg IV Q4H PRN PRN Reason: Pain , Severe (7-10) Last Admin: 12/14/21 05:38 Dose: 4 mg Ondansetron HCl (Ondansetron 4 Mg/2 Ml Inj) 4 mg IV Q8H PRN PRN Reason: Nausea And Vomiting Last Admin: 12/14/21 10:44 Dose: 4 mg Sodium Chloride (Sodium Chloride 0.9% 10 Ml Flush Syringe) 10 ml IV BID ALYSON Last Admin: 12/14/21 10:44 Dose: 10 ml Sodium Chloride (Sodium Chloride 0.9% 10 Ml Flush Syringe) 10 ml IV PRN PRN PRN Reason: LINE FLUSH Physical Examination - Physical Exam Narrative exam: Physical Exam: Constitutional: Alert, cooperative. No acute distress Head, Ears, Nose: Normocephalic, atraumatic. External ears, nose normal Eyes: Conjunctivae/corneas clear. No icterus. No ptosis. Neck: Supple, no meningeal signs Oral: dentition fair, no thrush Cardiovascular: S1, S2 + Respiratory: Good air entry, clear to auscultation bilaterally GI: Soft, non-tender; bowel sounds normal. No peritoneal signs Musculoskeletal: No pedal edema, no cyanosis. Skin: No rash or abscess Hem/Lymphatic: No palpable cervical or supraclavicular nodes. No lymphangitis Psych: Mood ok. Affect normal Neurological: Awake, alert, oriented. No gross abnormality - Constitutional Vitals: Vital Signs Temp Pulse Resp BP Pulse Ox 98.0 F 65 20 124/86 97 12/14/21 05:21 12/14/21 05:31 12/14/21 05:21 12/14/21 05:21 12/14/21 09:55 Temperature -Last 24 Hours Temperature 98.0 F Temperature 98.1 F Temperature 98.9 F Temperature 98.2 F Results - Labs CBC & Chem 7: 12/14/21 04:23 12/14/21 04:23 Labs: Abnormal lab results 12/13/21 12/13/21 12/13/21 Range/Units 14:15 14:15 17:33 Hgb 9.9 L 9.8 L (10.1-14.3) gm/dl MCV 69 L 69 L (79-97) fl MCH 20 L 20 L (28-32) pg MCHC 29 L (30-34) % RDW 20.7 H 20.7 H (13.2-15.2) % Lymph % (Auto) 39.5 H 44.7 H (13.4-35.0) % Jay % (Auto) 9.1 H 10.4 H (0.0-7.3) % Potassium 3.0 L (3.6-5.0) mmol/L Chloride (98-107) mmol/L Carbon Dioxide (22-30) mmol/L Glucose 105 H (65-100) mg/dL POC Glucose (70-105) mg/dL Calcium (8.4-10.2) mg/dL Ammonia (25-60) umol/L Total Creatine Kinase (30-135) units/L CK-MB (CK-2) (0.0-4.0) ng/mL Urine WBC (Auto) (0.0-6.0) /HPF U Epithel Cells (Auto) (0-13.0) /HPF Salicylates (2.8-20.0) mg/dL Acetaminophen (10.0-30.0) ug/mL 12/13/21 12/13/21 12/13/21 Range/Units 17:33 17:33 17:33 Hgb (10.1-14.3) gm/dl MCV (79-97) fl MCH (28-32) pg MCHC (30-34) % RDW (13.2-15.2) % Lymph % (Auto) (13.4-35.0) % Jay % (Auto) (0.0-7.3) % Potassium (3.6-5.0) mmol/L Chloride (98-107) mmol/L Carbon Dioxide (22-30) mmol/L Glucose (65-100) mg/dL POC Glucose (70-105) mg/dL Calcium (8.4-10.2) mg/dL Ammonia 17.0 L (25-60) umol/L Total Creatine Kinase 275 H (30-135) units/L CK-MB (CK-2) 4.5 H (0.0-4.0) ng/mL Urine WBC (Auto) (0.0-6.0) /HPF U Epithel Cells (Auto) (0-13.0) /HPF Salicylates < 0.3 L (2.8-20.0) mg/dL Acetaminophen (10.0-30.0) ug/mL 12/13/21 12/13/21 12/14/21 Range/Units 17:33 Unknown 04:23 Hgb (10.1-14.3) gm/dl MCV 68 L (79-97) fl MCH 21 L (28-32) pg MCHC (30-34) % RDW 20.1 H (13.2-15.2) % Lymph % (Auto) 42.7 H (13.4-35.0) % Jay % (Auto) 9.3 H (0.0-7.3) % Potassium (3.6-5.0) mmol/L Chloride (98-107) mmol/L Carbon Dioxide (22-30) mmol/L Glucose (65-100) mg/dL POC Glucose (70-105) mg/dL Calcium (8.4-10.2) mg/dL Ammonia (25-60) umol/L Total Creatine Kinase (30-135) units/L CK-MB (CK-2) (0.0-4.0) ng/mL Urine WBC (Auto) 133.0 H (0.0-6.0) /HPF U Epithel Cells (Auto) 20.0 H (0-13.0) /HPF Salicylates (2.8-20.0) mg/dL Acetaminophen 5.0 L (10.0-30.0) ug/mL 12/14/21 12/14/21 12/14/21 Range/Units 04:23 09:02 09:04 Hgb (10.1-14.3) gm/dl MCV (79-97) fl MCH (28-32) pg MCHC (30-34) % RDW (13.2-15.2) % Lymph % (Auto) (13.4-35.0) % Jay % (Auto) (0.0-7.3) % Potassium (3.6-5.0) mmol/L Chloride 110.9 H (98-107) mmol/L Carbon Dioxide 21 L (22-30) mmol/L Glucose 101 H (65-100) mg/dL POC Glucose 110 H 118 H (70-105) mg/dL Calcium 8.3 L (8.4-10.2) mg/dL Ammonia (25-60) umol/L Total Creatine Kinase (30-135) units/L CK-MB (CK-2) (0.0-4.0) ng/mL Urine WBC (Auto) (0.0-6.0) /HPF U Epithel Cells (Auto) (0-13.0) /HPF Salicylates (2.8-20.0) mg/dL Acetaminophen (10.0-30.0) ug/mL - Imaging and Cardiology Chest x-ray: report reviewed, image reviewed (no pneumonia) Assessment and Plan Cultures: 12/13/2021 blood culture: In process A/P: 56-year-old female with bipolar disorder, diabetes mellitus, hypertension was admitted with generalized weakness, lightheadedness going on for a week: #Recurrent UTI, cystitis: CT abdomen without any acute findings, no urinary stones. Chest x-ray without pneumonia. Also reports intermittent brownish vaginal discharge, sexually active. #Weakness, encephalopathy #Diabetes mellitus #Bipolar disorder Recs: -switched to Ceftriaxone 2 gm daily, follow-up blood and urine cultures -also added PO doxycycline 100 mg BID x 7 days -GC NAAT ordered Emmy Gibbs MD, FACMike, [facility] O: [phone] F: [phone]
--- NOTE | 2021-12-14 14:20 | Magnetic Resonance Report ---
MRI BRAIN 12/14/2021 INDICATION / CLINICAL INFORMATION: CVA--DIZZINESS. TECHNIQUE: Multiplanar, multisequence MR images of the brain were obtained. COMPARISON: None available. FINDINGS: BRAIN / INTRACRANIAL CONTENTS: Unenhanced MR images of the brain demonstrate no evidence of acute abn ormality. Ventricles and sulci are normal in size and shape. There is no evidence of ischemic injury, demyelination, hemorrhage, or mass. There are no abnormal ex tra-axial fluid collections. EXTRACRANIAL: Unremarkable CRANIOCERVICAL JUNCTION: No significant abnormality. VASCULAR FLOW-VOIDS: No significant abnormality. IMPRESSION: No acute abnormality. Negative unenhanced MRI of the brain. Signer Name: Jason Martinez MD Signed: 12/14/2021 2:15 PM Workstation Name: [id number]
[2021-12-14] MEDS: DOXYCYCLINE 100 MG CAP PO SCH ×2 (14:55→21:17)
[2021-12-14] MEDS: cefTRIAXone/NS 2 GM/100 ML 2 GM/100 ML BAG IV SCH (14:55)
--- NOTE | 2021-12-14 15:16 | Progress Note ---
Assessment and Plan Assessment and plan: #Generalized weakness #CVA rule out -CT of the head, CTA head/neck and MRI all negative -Echocardiogram and carotid Doppler pending -Aspirin and statin started -Neurology consulted, assistance appreciated #Recurrent UTI #Vaginal discharge -Patient reports recent sexual activity with brown vaginal discharge -Continue Rocephin, doxycycline added -Chlamydia and gonorrhea testing ordered -Infectious disease consulted, assistance appreciated #Type 2 diabetes -Patient takes Metformin outpatient -Continue sliding scale insulin #Hypokalemia -will replete and monitor #Bipolar disorder -Duloxetine restarted Disposition Plan: Continue medical management History Interval history: No acute events overnight. Patient reports feeling better but had 1 episode of vomiting. Denies nausea, lightheadedness or dizziness at this time. Hospitalist Physical - Physical exam Narrative exam: GENERAL: Well-developed well-nourished. In no acute distress. HEENT: Normocephalic. Atraumatic. CHEST/LUNGS: CTAB on room air HEART/CARDIOVASCULAR: RRR. No murmur, rubs or gallops appreciated. ABDOMEN: +BS. NT/ND. SKIN: No rashes noted. NEURO: No focal motor deficit. Follows all commands and is ambulatory. MUSCULOSKELETAL: No joint effusion EXTREMITIES: No cyanosis, clubbing or edema. PSYCH: Cooperative. - Constitutional Vitals: Temp Pulse Resp BP Pulse Ox 98.0 F 65 20 124/86 97 12/14/21 05:21 12/14/21 05:31 12/14/21 05:21 12/14/21 05:21 12/14/21 09:55 General appearance: Present: no acute distress, well-nourished HEART Score - HEART Score Troponin: Troponin T < 0.010 ng/mL (0.00-0.029) 12/13/21 22:53 Results - Labs CBC & Chem 7: 12/14/21 04:23 12/14/21 04:23 Labs: Laboratory Last Values WBC 4.8 K/mm3 (4.5-11.0) 12/14/21 04:23 RBC 4.89 M/mm3 (3.65-5.03) 12/14/21 04:23 Hgb 10.1 gm/dl (10.1-14.3) 12/14/21 04:23 Hct 33.3 % (30.3-42.9) 12/14/21 04:23 MCV 68 fl (79-97) L 12/14/21 04:23 MCH 21 pg (28-32) L 12/14/21 04:23 MCHC 30 % (30-34) 12/14/21 04:23 RDW 20.1 % (13.2-15.2) H 12/14/21 04:23 Plt Count 157 K/mm3 (140-440) 12/14/21 04:23 Lymph % (Auto) 42.7 % (13.4-35.0) H 12/14/21 04:23 [place] % (Auto) 9.3 % (0.0-7.3) H 12/14/21 04:23 Eos % (Auto) 1.9 % (0.0-4.3) 12/14/21 04:23 Baso % (Auto) 0.8 % (0.0-1.8) 12/14/21 04:23 Lymph # (Auto) 2.0 K/mm3 (1.2-5.4) 12/14/21 04:23 [place] # (Auto) 0.4 K/mm3 (0.0-0.8) 12/14/21 04:23 Eos # (Auto) 0.1 K/mm3 (0.0-0.4) 12/14/21 04:23 Baso # (Auto) 0.0 K/mm3 (0.0-0.1) 12/14/21 04:23 Seg Neutrophils % 45.3 % (40.0-70.0) 12/14/21 04:23 Seg Neutrophils # 2.2 K/mm3 (1.8-7.7) 12/14/21 04:23 PT 13.9 Sec. (12.2-14.9) 12/13/21 17:33 INR 0.96 (0.87-1.13) 12/13/21 17:33 APTT 32.0 Sec. (24.2-36.6) 12/13/21 17:33 Thrombin Time 16.3 Sec. (15.1-19.6) 12/13/21 17:33 Sodium 143 mmol/L (137-145) 12/14/21 04:23 Potassium 4.0 mmol/L (3.6-5.0) D 12/14/21 04:23 Chloride 110.9 mmol/L (98-107) H 12/14/21 04:23 Carbon Dioxide 21 mmol/L (22-30) L 12/14/21 04:23 Anion Gap 15 mmol/L 12/14/21 04:23 BUN 8 mg/dL (7-17) 12/14/21 04:23 Creatinine 0.8 mg/dL (0.6-1.2) 12/14/21 04:23 Estimated GFR > 60 ml/min 12/14/21 04:23 BUN/Creatinine Ratio 10 % 12/14/21 04:23 Glucose 101 mg/dL (65-100) H 12/14/21 04:23 POC Glucose 102 mg/dL (70-105) 12/14/21 12:17 Calcium 8.3 mg/dL (8.4-10.2) L 12/14/21 04:23 Magnesium 2.10 mg/dL (1.7-2.3) 12/13/21 16:10 Total Bilirubin 0.20 mg/dL (0.1-1.2) 12/13/21 14:15 AST 13 units/L (5-40) 12/13/21 14:15 ALT 9 units/L (7-56) 12/13/21 14:15 Alkaline Phosphatase 50 units/L (35-129) 12/13/21 14:15 Ammonia 17.0 umol/L (25-60) L 12/13/21 17:33 Total Creatine Kinase 275 units/L (30-135) H 12/13/21 17:33 CK-MB (CK-2) 4.5 ng/mL (0.0-4.0) H 12/13/21 17:33 CK-MB (CK-2) Rel Index 1.6 (0-4) 12/13/21 17:33 Troponin T < 0.010 ng/mL (0.00-0.029) 12/13/21 22:53 Total Protein 8.2 g/dL (6.3-8.2) 12/13/21 14:15 Albumin 4.3 g/dL (3.9-5) 12/13/21 14:15 Albumin/Globulin Ratio 1.1 % 12/13/21 14:15 TSH 0.977 mlU/mL (0.270-4.200) 12/13/21 14:15 Urine Color Yellow (Yellow) 12/13/21 Unknown Urine Turbidity Cloudy (Clear) 12/13/21 Unknown Urine pH 5.0 (5.0-7.0) 12/13/21 Unknown Ur Specific [place] 1.027 (1.003-1.030) 12/13/21 Unknown Urine Protein 30 mg/dl mg/dL (Negative) 12/13/21 Unknown Urine Glucose (UA) Neg mg/dL (Negative) 12/13/21 Unknown Urine Ketones Neg mg/dL (Negative) 12/13/21 Unknown Urine Blood Sm (Negative) 12/13/21 Unknown Urine Nitrite Neg (Negative) 12/13/21 Unknown Urine Bilirubin Neg (Negative) 12/13/21 Unknown Urine Urobilinogen < 2.0 mg/dL (<2.0) 12/13/21 Unknown Ur Leukocyte Esterase Lg (Negative) 12/13/21 Unknown Urine WBC (Auto) 133.0 /HPF (0.0-6.0) H 12/13/21 Unknown Urine RBC (Auto) 90.0 /HPF (0.0-6.0) 12/13/21 Unknown U Epithel Cells (Auto) 20.0 /HPF (0-13.0) H 12/13/21 Unknown Urine Bacteria (Auto) 1+ /HPF (Negative) 12/13/21 Unknown Urine Mucus 1+ /HPF 12/13/21 Unknown Salicylates < 0.3 mg/dL (2.8-20.0) L 12/13/21 17:33 Urine Opiates Screen Negative 12/13/21 Unknown Urine Methadone Screen Negative 12/13/21 Unknown Acetaminophen 5.0 ug/mL (10.0-30.0) L 12/13/21 17:33 Ur Barbiturates Screen Negative 12/13/21 Unknown Ur Phencyclidine Scrn Negative 12/13/21 Unknown Ur Amphetamines Screen Negative 12/13/21 Unknown U Benzodiazepines Scrn Negative 12/13/21 Unknown Urine Cocaine Screen Negative 12/13/21 Unknown U Marijuana (THC) Screen Negative 12/13/21 Unknown Drugs of Abuse Note Disclamer 12/13/21 Unknown Plasma/Serum Alcohol < 0.01 % (0-0.07) 12/13/21 17:33 Microbiology: Microbiology 12/13/21 17:44 Peripheral/Venous Blood Culture - Preliminary Culture in Progress 12/13/21 17:33 Peripheral/Venous Blood Culture - Preliminary Culture in Progress Brown/IV: Voiding Method Toilet Active Medications - Current Medications Current Medications: Generic Name Dose Route Start Last Admin Trade Name Freq PRN Reason Stop Dose Admin Acetaminophen 650 mg 12/13/21 23:31 12/14/21 03:05 Acetaminophen 325 Mg Tab PO 650 mg Q4H PRN Administration Pain MILD(1-3)/Fever >100.5/VITAL Aspirin 325 mg 12/14/21 10:00 12/14/21 09:28 Aspirin Ec 325 Mg Tab PO 325 mg QDAY ALYSON Administration Atorvastatin Calcium 40 mg 12/14/21 22:00 Atorvastatin 40 Mg Tab PO QHS [facility] Dextrose 0 ml 12/13/21 23:57 Dextrose 10% *Hypoglycemia IV PRN PRN Hypoglycemia Protocol Doxycycline Hyclate 100 mg 12/14/21 15:00 12/14/21 14:55 Doxycycline 100 Mg Cap PO 12/20/21 22:01 100 mg BID ALYSON Administration Protocol Sodium Chloride 1,000 mls @ 125 mls/hr 12/13/21 23:45 12/14/21 14:50 Nacl 0.9% 1000 Ml IV 125 mls/hr DIRECT ALYSON Administration Ceftriaxone Sodium 2 gm in 100 mls @ 200 mls/hr 12/14/21 15:00 12/14/21 14:55 Rocephin/Ns 2 Gm/100 Ml IV 200 mls/hr Q24HR ALYSON Administration Protocol Insulin Human Lispro 0 unit 12/14/21 07:30 12/14/21 11:30 Insulin Lispro 100 Unit/Ml SUB-Q Not Given ACHS ALYSNO Protocol Morphine Sulfate 2 mg 12/13/21 23:38 Morphine 2 Mg/1 Ml Inj IV Q4H PRN Pain, Moderate (4-6) Morphine Sulfate 4 mg 12/13/21 23:38 12/14/21 05:38 Morphine 4 Mg/1 Ml Inj IV 4 mg Q4H PRN Administration Pain , Severe (7-10) Ondansetron HCl 4 mg 12/13/21 23:31 12/14/21 10:44 Ondansetron 4 Mg/2 Ml Inj IV 4 mg Q8H PRN Administration Nausea And Vomiting Sodium Chloride 10 ml 12/14/21 10:00 12/14/21 10:44 Sodium Chloride 0.9% 10 Ml Flush Syringe IV 10 ml BID ALYSON Administration Sodium Chloride 10 ml 12/13/21 23:31 Sodium Chloride 0.9% 10 Ml Flush Syringe IV PRN PRN LINE FLUSH
[2021-12-14] MEDS ORDERED: NON-FORMULARY EACH (Duloxetine 30 MG) PO SCH (15:30)
[2021-12-14] MEDS ORDERED: BENZTROPINE 2 MG PO SCH (15:30)
--- NOTE | 2021-12-14 16:06 | Vascular Lab Report ---
DUPLEX DOPPLER ULTRASOUND CAROTID, BILATERAL INDICATION / CLINICAL INFORMATION: CVA. COMPARISON: CTA neck performed yesterday. FINDINGS: RIGHT CAROTID: No significant atherosclerotic plaque. - PLAQUE ESTIMATE (%): < 50% - CCA velocity: 84 cm/sec. - ICA peak systolic velocity: 104 cm/sec. - ICA/CCA PSV Ratio: Less than 2. Right Vertebral Artery: Antegrade flow. LEFT CAROTID: No significant atherosclerotic plaque. - PLAQUE ESTIMATE (%): < 50% - CCA velocity: 101 cm/sec. - ICA peak systolic velocity: 93 cm/sec. - ICA/CCA PSV Ratio: Less than 2. Left Vertebral Artery: Antegrade flow. IMPRESSION: 1. Right Internal Carotid Artery: Normal. No stenosis. 2. Left Internal Carotid Artery: Normal. No stenosis. Velocity criteria are extrapolated from diameter data as defined by the Society of Radiologists in Ul trasound Consensus Conference, Radiology 2003; 229;340-346. NO STENOSIS (NORMAL) - Plaque = none; ICA PSV < 125 cm/sec; ICA/CCA PSV Ratio < 2.0 <50% STENOSIS - Plaque < 50%; ICA PSV < 125 cm/sec; ICA/CCA PSV Ratio < 2.0 50-69% STENOSIS - Plaque > 50%; ICA PSV = 125-230 cm/sec; ICA/CCA PSV Ratio = 2.0-4.0 >70% BUT <100% STENOSIS - Plaque > 50%; ICA PSV > 230 cm/sec; ICA/CCA PSV Ratio > 4.0 NEAR OCCLUSION - Plaque = visible lumen; ICA PSV = high/low/none; ICA/CCA PSV Ratio = variable TOTAL OCCLUSION - Plaque = no lumen; ICA PSV = none; ICA/CCA PSV Ratio = N/A Scribed by: Louise Markham RDMS, RVT, RMSKS Scribed: 12/14/2021 2:08 PM I have reviewed the images, agree with this report, and edited this report as needed. Signer Name: Ry Anders MD Signed: 12/14/2021 4:01 PM Workstation Name: [id number]
[2021-12-14] MEDS: DULoxetine 30 MG CAP PO SCH (17:28)
[2021-12-14] MEDS ORDERED: BENZTROPINE 2 MG TAB PO SCH (22:00)
[2021-12-15] MEDS: INSULIN LISPRO 100 UNIT/ML SUB-Q SCH ×2 (09:06→12:42)
[2021-12-15] MEDS: DOXYCYCLINE 100 MG CAP PO SCH (10:03)
[2021-12-15] MEDS: ASPIRIN EC 325 MG TAB PO SCH (10:03)
[2021-12-15] MEDS: cefTRIAXone/NS 2 GM/100 ML 2 GM/100 ML BAG IV SCH (10:04)
[2021-12-15] MEDS: DULoxetine 30 MG CAP PO SCH (10:04)
[2021-12-15] MEDS: SODIUM CHLORIDE 0.9% 1000 ML 1,000 ML IV SCH (10:13)
--- NOTE | 2021-12-15 12:26 | Progress Note ---
Assessment and Plan # Assessment and Plan 56-year-old female with known history of bipolar disorder, diabetes mellitus presenting to the emergency room today complaining of generalized weakness and lightheadedness for 1 week. Patient indicates that symptoms started when she ran out of diabetic medication about a week ago. He has had some nausea but no vomiting. Patient indicates that she feels generally weak and lightheaded. - Patient Problems # None specific complaint of weakness diffuse , she stopped taking her metaformin a week ago -exam is none focal with NIH#0 -CT brain is unremarkable -CTA brain and neck are unremarkable -she is started on ASA and Lipitor -MRI brain is unremarkable # Dizziness none specific -no nystagmus no vertigo -check orthostatic vital and HR -cardiac monitoring # R/O CVA -We will schedule patient for MRI of the brain, - echocardiogram done -A1c,LDL are pending. -started on ASA and Lipitor # Hypokalemia -Potassium will be repleted and will monitor chemistry. # Diabetes mellitus/ stopped medication -We will monitor Accu-Cheks. -Patient placed on sliding scale insulin. # UTI (urinary tract infection) -Patient placed on empiric IV antibiotics. -Await culture results. # Bipolar disorder -Continue routine home medications. # DVT prophylaxis -Patient placed on subcutaneous heparin. will sign off check LDL and A1C compy with her BP emdication and ASA ,Lipitor follow up with PCP Subjective Date of service: 12/15/21 Interval history: doing well no complaint today BP is better controlled echo is with Ef#50-55% MRI brain showed no acute event Objective - Vital Sign Vital Signs - 12hr 12/15/21 12/15/21 12/15/21 01:00 05:28 11:55 Temperature 98.4 F 99.0 F Pulse Rate 72 80 Pulse Rate [ 84 Left Radial] Respiratory 18 20 Rate Blood Pressure 104/81 129/76 O2 Sat by Pulse 97 95 88 Oximetry 12/15/21 11:59 Temperature Pulse Rate Pulse Rate [ Left Radial] Respiratory Rate Blood Pressure O2 Sat by Pulse 96 Oximetry - General Apperance Constitutional: comfortable - EENT EENT: PERRL, mucous membranes moist - Respiratory Respiratory: lungs clear, rhonchi - Cardiovascular Cardiovascular: regular rate, normal S1, normal S2 Extremities: no peripheral edema bilat, no clubbing, cyanosis - Gastrointestinal Gastrointestinal: normoactive bowel sounds - Neurologic Cranial nerve examination: PERRL, EOMI, intact Speech examination: intact Detailed motor examination: grossly full strength in - Laboratory Findings CBC and BMP: 12/14/21 04:23 12/14/21 04:23 Abnormal Lab Findings: Abnormal Labs 12/13/21 12/13/21 12/13/21 14:15 14:15 17:33 Hgb 9.9 L 9.8 L MCV 69 L 69 L MCH 20 L 20 L MCHC 29 L RDW 20.7 H 20.7 H Lymph % (Auto) 39.5 H 44.7 H [place] % (Auto) 9.1 H 10.4 H Potassium 3.0 L Chloride Carbon Dioxide Glucose 105 H POC Glucose Calcium Ammonia Total Creatine Kinase CK-MB (CK-2) Urine WBC (Auto) U Epithel Cells (Auto) Salicylates Acetaminophen 12/13/21 12/13/21 12/13/21 17:33 17:33 17:33 Hgb MCV MCH MCHC RDW Lymph % (Auto) [place] % (Auto) Potassium Chloride Carbon Dioxide Glucose POC Glucose Calcium Ammonia 17.0 L Total Creatine Kinase 275 H CK-MB (CK-2) 4.5 H Urine WBC (Auto) U Epithel Cells (Auto) Salicylates < 0.3 L Acetaminophen 12/13/21 12/13/21 12/14/21 17:33 Unknown 04:23 Hgb MCV 68 L MCH 21 L MCHC RDW 20.1 H Lymph % (Auto) 42.7 H [place] % (Auto) 9.3 H Potassium Chloride Carbon Dioxide Glucose POC Glucose Calcium Ammonia Total Creatine Kinase CK-MB (CK-2) Urine WBC (Auto) 133.0 H U Epithel Cells (Auto) 20.0 H Salicylates Acetaminophen 5.0 L 12/14/21 12/14/21 12/14/21 04:23 09:02 09:04 Hgb MCV MCH MCHC RDW Lymph % (Auto) [place] % (Auto) Potassium Chloride 110.9 H Carbon Dioxide 21 L Glucose 101 H POC Glucose 110 H 118 H Calcium 8.3 L Ammonia Total Creatine Kinase CK-MB (CK-2) Urine WBC (Auto) U Epithel Cells (Auto) Salicylates Acetaminophen 12/15/21 07:37 Hgb MCV MCH MCHC RDW Lymph % (Auto) [place] % (Auto) Potassium Chloride Carbon Dioxide Glucose POC Glucose 113 H Calcium Ammonia Total Creatine Kinase CK-MB (CK-2) Urine WBC (Auto) U Epithel Cells (Auto) Salicylates Acetaminophen
--- NOTE | 2021-12-15 12:27 | Progress Note ---
Assessment and Plan Cultures: blood culture no growth 12/13/2021 urine culture: In process A/P: 56-year-old female with bipolar disorder, diabetes mellitus, hypertension was admitted with generalized weakness, lightheadedness going on for a week: #Recurrent UTI, cystitis: CT abdomen without any acute findings, no urinary stones. Chest x-ray without pneumonia. Also reported intermittent brownish vaginal discharge, sexually active. #Weakness, encephalopathy: MRI brain normal. #Diabetes mellitus #Bipolar disorder Recs: -GC NAAT pending -Ok for discharge on PO doxycycline 100 mg BID x 7 days Emmy Gibbs MD, FACP, [facility] O: [phone] F: [phone] Subjective Date of service: 12/15/21 Interval history: Denies any complaints. MRI brain normal. No fever. She is not sure if she still has vaginal discharge. Objective - Exam Narrative Exam: Physical Exam: Constitutional: Alert, cooperative. No acute distress Head, Ears, Nose: Normocephalic, atraumatic. External ears, nose normal Eyes: Conjunctivae/corneas clear. No icterus. No ptosis. Neck: Supple, no meningeal signs Cardiovascular: S1, S2 + Respiratory: Good air entry, clear to auscultation bilaterally GI: Soft, non-tender; bowel sounds normal. No peritoneal signs Musculoskeletal: No pedal edema, no cyanosis. Skin: No rash or abscess Hem/Lymphatic: No palpable cervical or supraclavicular nodes. No lymphangitis Psych: Mood ok. Affect normal Neurological: Awake, alert, oriented. No gross abnormality - Constitutional Vitals: Vital Signs Temp Pulse Resp BP Pulse Ox 99.0 F 80 20 129/76 96 12/15/21 11:55 12/15/21 11:55 12/15/21 11:55 12/15/21 11:55 12/15/21 11:59 Temperature -Last 24 Hours Temperature 99.0 F Temperature 98.4 F Temperature 98.6 F Temperature 99.0 F Temperature 98.8 F - Labs CBC & Chem 7: 12/14/21 04:23 12/14/21 04:23 Labs: Abnormal lab results 12/15/21 Range/Units 07:37 POC Glucose 113 H (70-105) mg/dL
--- NOTE | 2021-12-15 13:08 | Electrocardiograph Report ---
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
--- NOTE | 2021-12-15 13:15 | Electrocardiograph Report ---
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
--- NOTE | 2021-12-15 14:00 | Discharge Summary ---
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 Please establish care with a primary care physician and mental health. You could always use good Rx to help supplement medication costs. Follow up with: PRIMARY CARE, [Primary Care Provider] - 3-5 Days Prescriptions: Benztropine [Cogentin] 2 mg PO QHS 30 Days #30 tablet AtorvaSTATin [Lipitor] 40 mg PO QHS 30 Days #30 tablet DULoxetine [Cymbalta] 30 mg PO QDAY 30 Days #30 capsule diphenhydrAMINE HCL [Diphenhydramine HCl] 25 mg PO BID PRN 30 Days #60 tab PRN Reason: Itching Aspirin EC [Ecotrin] 325 mg PO QDAY 30 Days #30 tablet metFORMIN XR [Glucophage XR] 500 mg PO BID 30 Days #60 tab DOXYCYCLINE Hyclate [Vibramycin CAP] 100 mg PO BID 10 Days #20 tab
[2021-12-15 16:07] VITALS: BP 114/80
== END 2021-12-15 17:45 | disposition home or self-care (01) | DRG 71 ==
LOC: ED 11:34 → 3A 23:31
PROVIDERS: ADMIT Internal Medicine Geriatric Medicine; ATTEND Student in an Organized Health Care Education/Training Program
DX: G93.41 Metabolic encephalopathy (principal); N39.0 Urinary tract infection, site not specified; R53.1 Weakness; E11.9 Type 2 diabetes mellitus without complications; F32.9 Major depressive disorder, single episode, unspecified; E87.6 Hypokalemia; I10 Essential (primary) hypertension; Z20.822 Contact with and (suspected) exposure to COVID-19
CPT/HCPCS: 36415; 70450; 70496; 70498; 70551; 71046; 74176; 80048; 80053; 80307; 80320; 81001; 82140; 82550; 82553; 82962; 83735; 84443; 84484; 85025; 85610; 85670; 85730; 87040; 87086; 87591; 93005; 93010; 93306; 93880; G0378; Q0162; C8929; G0480; J0692; J0696; J2270; J2405; J7030; Q9967

== ENCOUNTER 2022-01-03 01:51 | Emergency (ER) | payer SELFPAY ==
--- NOTE | 2022-01-03 02:12 | Emergency Department Report ---
ED Psych HPI - General Chief Complaint: Psych Stated Complaint: PSYCH Time Seen by Provider: 01/03/22 02:07 Source: patient, EMS Mode of arrival: Ambulatory - History of Present Illness Initial Comments: Patient is 56-year-old female with history of schizophrenia. Patient presented to the ER via EMS for mental health evaluation. Patient stated that she is hearing voices. When I examined the patient patient stated that she cannot talk now because there is a lot of angles around her. When asked about suicidal ideation she stated that not at this moment but she does not know if she will think about it next. Patient is obviously responding to internal stimuli. Complaint: altered mental status - Related Data Previous Rx's Medication Instructions Recorded Last Taken Type metFORMIN XR [Glucophage XR] 500 mg PO BID 30 Days #60 tab 12/15/21 01/02/22 09:00 Rx Allergies Allergy/AdvReac Type Severity Reaction Status Date / Time morphine Allergy Severe confusion Verified 12/14/21 11:38 ED Review of Systems ROS: Stated complaint: PSYCH Other details as noted in HPI Comment: All other systems reviewed and negative ED Past Medical Hx - Past Medical History Previous Medical History?: Yes Hx Congestive Heart Failure: No Hx Diabetes: Yes Hx Psychiatric Treatment: Yes Hx Asthma: No Hx COPD: No Hx HIV: Yes - Surgical History Past Surgical History?: No - Social History Smoking Status: Unknown if ever smoked Substance Use Type: None - Medications Home Medications: Home Medications Medication Instructions Recorded Confirmed Last Taken Type metFORMIN XR [Glucophage XR] 500 mg PO BID 30 Days #60 tab 12/15/21 01/03/22 01/02/22 09:00 Rx ED Physical Exam - General Limitations: No Limitations, Altered Mental Status General appearance: alert, in no apparent distress - Head Head exam: Present: atraumatic, normocephalic, normal inspection - Eye Eye exam: Present: normal appearance - ENT ENT exam: Present: normal exam, normal orophraynx, mucous membranes moist - Neck Neck exam: Present: normal inspection - Respiratory Respiratory exam: Present: normal lung sounds bilaterally - Cardiovascular Cardiovascular Exam: Present: regular rate, normal rhythm, normal heart sounds - GI/Abdominal GI/Abdominal exam: Present: soft, normal bowel sounds. Absent: distended, tenderness, guarding, rebound, rigid, mass, bruit, pulsatile mass, hernia - Extremities Exam Extremities exam: Present: normal inspection, full ROM, normal capillary refill. Absent: tenderness - Back Exam Back exam: Present: normal inspection, full ROM. Absent: CVA tenderness (R), CVA tenderness (L) - Neurological Exam Neurological exam: Present: alert, oriented X3, CN II-XII intact - Psychiatric Psychiatric exam: Absent: homicidal ideation - Skin Skin exam: Present: warm, intact, normal color ED Course Vital Signs 01/03/22 01/03/22 01/03/22 01:57 01:59 02:18 Temperature 98 F 98.7 F Pulse Rate 86 93 H Respiratory 18 18 18 Rate Blood Pressure 145/100 139/89 [Right] O2 Sat by Pulse 98 99 98 Oximetry 01/03/22 01/03/22 11:19 20:23 Temperature 98.1 F 99.2 F Pulse Rate 84 89 Respiratory 16 18 Rate Blood Pressure 129/83 117/61 [Right] O2 Sat by Pulse 98 96 Oximetry ED Medical Decision Making - Lab Data Result diagrams: 01/03/22 02:21 01/03/22 02:21 - Medical Decision Making Patient is 56-year-old female with history of schizophrenia. Patient presented to the ER via EMS for mental health evaluation. Patient stated that she is hearing voices. When I examined the patient patient stated that she cannot talk now because there is a lot of angles around her. When asked about suicidal ideation she stated that not at this moment but she does not know if she will think about it next. Patient is obviously responding to internal stimuli. Labs reviewed and showed a slightly low potassium. Patient received K. Dur 40 mEq. Labs also show UTI. Patient started on Macrobid 100 mg twice a day for 7 days. Patient is medically clear for psychiatric evaluation. Critical care attestation.: If time is entered above; I have spent that time in minutes in the direct care of this critically ill patient, excluding procedure time. ED Disposition Clinical Impression: Acute psychosis Disposition: [address] [place] [address] Is pt being admited?: No Condition: Stable
[2022-01-03 02:43] LABS: Basophils % (Auto) 0.7 % (0.0-1.8); Eosinophils # (Auto) 0.1 K/mm3 (0.0-0.4); Eosinophils % (Auto) 1.6 % (0.0-4.3); Lymphocytes # (Auto) 2.3 K/mm3 (1.2-5.4); Lymphocytes % (Auto) 36.8 % (13.4-35.0); Mean Corpuscular HGB Conc 30 % (30-34); Monocytes # (Auto) 0.5 K/mm3 (0.0-0.8); Monocytes % (Auto) 8.6 % (0.0-7.3); Platelet Count 160 K/mm3 (140-440); Red Blood Count 5.01 M/mm3 (3.65-5.03)
[2022-01-03 02:45] LABS: Hematocrit 34.7 % (30.3-42.9); Hemoglobin 10.3 gm/dl (10.1-14.3); Mean Corpuscular Volume 69 fl (79-97); Red Cell Distribution Width 20.6 % (13.2-15.2)
[2022-01-03 02:49] LABS: Bilirubin,Urine NEG (Negative); Blood,Urine NEG (Negative); Color,Urine Yellow (Yellow); Mucus,Urine 2+ /HPF
[2022-01-03 02:55] LABS: Amphetamine Screen,Urine PRESUMPTIVE NEGATIVE; Benzodiazepines Screen,Urine PRESUMPTIVE NEGATIVE; Cannabinoid Screen,Urine PRESUMPTIVE NEGATIVE; Cocaine Screen,Urine PRESUMPTIVE NEGATIVE; Methadone Screen,Urine PRESUMPTIVE NEGATIVE; Opiate Screen,Urine PRESUMPTIVE NEGATIVE
[2022-01-03 03:03] LABS: BUN/Creatinine Ratio 13; Blood Urea Nitrogen 12 mg/dL (7-17); Calcium 8.6 mg/dL (8.4-10.2); Hemolysis Index 3
[2022-01-03] MEDS ORDERED: POTASSIUM CHLORIDE ER 20 MEQ TAB PO ONE ×2 (04:48→11:01)
[2022-01-03] MEDS: NITROFURANTOIN MONOHYD/M-CRYST 100 MG CAP PO SCH (10:22)
--- NOTE | 2022-01-03 10:47 | Consultation ---
History of Present Illness - Reason for Consult Consult date: 01/03/22 Reason for consult: hallucinations - History of Present Psychiatric Illness ED Note: Patient is 56-year-old female with history of schizophrenia. Patient presented to the ER via EMS for mental health evaluation. Patient stated that she is hearing voices. When I examined the patient patient stated that she cannot talk now because there is a lot of angles around her. When asked about suicidal ideation she stated that not at this moment but she does not know if she will think about it next. Patient is obviously responding to internal stimuli. The patient is a 56 year old female with history of Schizophrenia, bipolar and anxiety disorder. In my interview with the patient, she presents with disorganized thoughts. The patient states that she was living with her sister " I had to get out of the house because I was seeing things and they were coming after me, it gets worse at night, I'm afraid to sleep, I'm afraid of being possessed by demons. " The patient denies any current suicidal/homicidal ideation and admits auditory hallucinations. PAST PSYCHIATRIC HISTORY Diagnoses: Bipolar, Anxiety, Schizophrenia Suicide attempts or Self-harm behavior: Yes Prior psychiatric hospitalizations: Yes Substance Abuse history: Denies Previous psychiatric medications tried: [facility] Outpatient treatment: Denies PAST MEDICAL HISTORY: None reported Family Psychiatric History: None reported or documented SOCIAL HISTORY Living arrangement: Homeless Marital status: Single Employment status: Unemployed REVIEW OF SYSTEMS Constitutional: Negative for weight loss ENT: Negative for stridor Respiratory: Negative for cough or hemoptysis All other systems reviewed and are negative MENTAL STATUS EXAMINATION General Appearance and Behavior: Age appropriate, good hygiene, wearing appropriate clothes, poor eye contact, calm, cooperative Cooperation: Participating/engaged, but Guarded Psychomotor Behavior: Psychomotor normal Mood: Depressed Affect and affective range: congruent with stated mood Thought Process: Circumstantial Thought Content: Hallucinations/ paranoid Speech: normal tone and pace Suicidal Ideation: Denies Homicidal Ideation: Denies Hallucinations: Yes Delusions: Yes Impulse Control: Limited Insight and Judgment: Limited insight and judgment Memory: Limited Attention: Divided Orientation: Alert, oriented Assessment and Plan Bipolar Treatment Plan 1013 Seroquel 25mg po BID Seroquel 50mg po QHS Medical: per primary Sitter: defer to primary Disposition: Recommend acute psychiatric inpatient treatment Will follow. Thanks Case staffed with Dr. Paz Medications and Allergies Medications and Allergies Allergies Allergy/AdvReac Type Severity Reaction Status Date / Time morphine Allergy Severe confusion Verified 12/14/21 11:38 Home Medications Medication Instructions Recorded Confirmed Last Taken Type Aspirin EC [Ecotrin] 325 mg PO QDAY 30 Days #30 tablet 12/15/21 Unknown Rx AtorvaSTATin [Lipitor] 40 mg PO QHS 30 Days #30 tablet 12/15/21 Unknown Rx Benztropine [Cogentin] 2 mg PO QHS 30 Days #30 tablet 12/15/21 Unknown Rx DOXYCYCLINE Hyclate [Vibramycin 100 mg PO BID 10 Days #20 tab 12/15/21 Unknown Rx CAP] DULoxetine [Cymbalta] 30 mg PO QDAY 30 Days #30 capsule 12/15/21 Unknown Rx diphenhydrAMINE HCL 25 mg PO BID PRN 30 Days #60 tab 12/15/21 Unknown Rx [Diphenhydramine HCl] metFORMIN XR [Glucophage XR] 500 mg PO BID 30 Days #60 tab 12/15/21 Unknown Rx Active Meds: Active Medications Nitrofurantoin Macrocrystals (Nitrofurantoin Monohyd/M-Cryst 100 Mg Cap) 100 mg PO BID [facility] Last Admin: 01/03/22 10:22 Dose: 100 mg Mental Status Exam - Vital signs Last Vital Signs Temp 98.7 F 01/03/22 02:18 Pulse 93 H 01/03/22 02:18 Resp 18 01/03/22 02:18 BP 139/89 01/03/22 02:18 Pulse Ox 98 01/03/22 02:18 Results Result Diagrams: 01/03/22 02:21 01/03/22 02:21 Abnormal lab results 01/03/22 01/03/22 01/03/22 Range/Units 02:21 02:21 02:21 MCV 69 L (79-97) fl MCH 21 L (28-32) pg RDW 20.6 H (13.2-15.2) % Lymph % (Auto) 36.8 H (13.4-35.0) % [place] % (Auto) 8.6 H (0.0-7.3) % Sodium 146 H (137-145) mmol/L Potassium 3.5 L (3.6-5.0) mmol/L Chloride 108.4 H (98-107) mmol/L Glucose 116 H (65-100) mg/dL Urine WBC (Auto) (0.0-6.0) /HPF U Epithel Cells (Auto) (0-13.0) /HPF Salicylates < 0.3 L (2.8-20.0) mg/dL Acetaminophen (10.0-30.0) ug/mL 01/03/22 01/03/22 Range/Units 02:21 Unknown MCV (79-97) fl MCH (28-32) pg RDW (13.2-15.2) % Lymph % (Auto) (13.4-35.0) % [place] % (Auto) (0.0-7.3) % Sodium (137-145) mmol/L Potassium (3.6-5.0) mmol/L Chloride (98-107) mmol/L Glucose (65-100) mg/dL Urine WBC (Auto) 34.0 H (0.0-6.0) /HPF U Epithel Cells (Auto) 14.0 H (0-13.0) /HPF Salicylates (2.8-20.0) mg/dL Acetaminophen 5.0 L (10.0-30.0) ug/mL All other labs normal.
[2022-01-03] MEDS ORDERED: QUEtiapine 25 MG TAB PO SCH (11:00)
--- NOTE | 2022-01-03 11:12 | Emergency Department Report ---
Blank Doc - Documentation Documentation: There have been no problems at the course of the morning or last night. We co ntinue to await psychiatric placement. Patient has been medically cleared.
[2022-01-03] MEDS: QUEtiapine 25 MG TAB PO SCH ×2 (11:27→14:09)
[2022-01-04] MEDS: NITROFURANTOIN MONOHYD/M-CRYST 100 MG CAP PO SCH ×4 (01:24→23:18)
[2022-01-04] MEDS: QUEtiapine 25 MG TAB PO SCH ×4 (01:24→23:19)
--- NOTE | 2022-01-04 10:28 | Progress Note ---
Subjective Date of service: 01/04/22 Subjective Comment: The patient was seen this morning. She continues to present with paranoia. She states she is doing fine, denies suicidal ideation and denies hallucinations. REVIEW OF SYSTEMS Constitutional: Negative for weight loss ENT: Negative for stridor Respiratory: Negative for cough or hemoptysis All other systems reviewed and are negative MENTAL STATUS EXAMINATION General Appearance and Behavior: Age appropriate, good hygiene, wearing appropriate clothes, poor eye contact, calm, cooperative Cooperation: Participating/engaged, but Guarded Psychomotor Behavior: Psychomotor normal Mood: Depressed Affect and affective range: congruent with stated mood Thought Process: Circumstantial Thought Content: paranoid Speech: normal tone and pace Suicidal Ideation: Denies Homicidal Ideation: Denies Hallucinations: Denies Delusions: Yes Impulse Control: Limited Insight and Judgment: Limited insight and judgment Memory: Limited Attention: Divided Orientation: Alert, oriented Assessment and Plan Bipolar Treatment Plan 1013 Seroquel 25mg po BID Seroquel 50mg po QHS Medical: per primary Sitter: defer to primary Disposition: Recommend acute psychiatric inpatient treatment Will follow. Thanks Case staffed with Dr. Paz Medications and Allergies Medications and Allergies Allergies Allergy/AdvReac Type Severity Reaction Status Date / Time morphine Allergy Severe confusion Verified 12/14/21 11:38 Home Medications Medication Instructions Recorded Confirmed Last Taken Type metFORMIN XR [Glucophage XR] 500 mg PO BID 30 Days #60 tab 12/15/21 01/03/22 01/02/22 09:00 Rx Active Meds: Active Medications Nitrofurantoin Macrocrystals (Nitrofurantoin Monohyd/M-Cryst 100 Mg Cap) 100 mg PO BID [facility] Last Admin: 01/04/22 09:52 Dose: 100 mg Quetiapine Fumarate (Quetiapine 25 Mg Tab) 50 mg PO QHS [facility] Last Admin: 01/04/22 01:24 Dose: 50 mg Quetiapine Fumarate (Quetiapine 25 Mg Tab) 25 mg PO 1000,1400 [facility] Last Admin: 01/04/22 09:53 Dose: 25 mg Results - Results Labs/Vitals: Laboratory Last Values WBC 6.2 K/mm3 (4.5-11.0) 01/03/22 02:21 RBC 5.01 M/mm3 (3.65-5.03) 01/03/22 02:21 Hgb 10.3 gm/dl (10.1-14.3) 01/03/22 02:21 Hct 34.7 % (30.3-42.9) 01/03/22 02:21 MCV 69 fl (79-97) L 01/03/22 02:21 MCH 21 pg (28-32) L 01/03/22 02:21 MCHC 30 % (30-34) 01/03/22 02:21 RDW 20.6 % (13.2-15.2) H 01/03/22 02:21 Plt Count 160 K/mm3 (140-440) 01/03/22 02:21 Lymph % (Auto) 36.8 % (13.4-35.0) H 01/03/22 02:21 [place] % (Auto) 8.6 % (0.0-7.3) H 01/03/22 02:21 Eos % (Auto) 1.6 % (0.0-4.3) 01/03/22 02:21 Baso % (Auto) 0.7 % (0.0-1.8) 01/03/22 02:21 Lymph # (Auto) 2.3 K/mm3 (1.2-5.4) 01/03/22 02:21 [place] # (Auto) 0.5 K/mm3 (0.0-0.8) 01/03/22 02:21 Eos # (Auto) 0.1 K/mm3 (0.0-0.4) 01/03/22 02:21 Baso # (Auto) 0.0 K/mm3 (0.0-0.1) 01/03/22 02:21 Seg Neutrophils % 52.3 % (40.0-70.0) 01/03/22 02:21 Seg Neutrophils # 3.2 K/mm3 (1.8-7.7) 01/03/22 02:21 Sodium 146 mmol/L (137-145) H 01/03/22 02:21 Potassium 3.5 mmol/L (3.6-5.0) L 01/03/22 02:21 Chloride 108.4 mmol/L (98-107) H 01/03/22 02:21 Carbon Dioxide 25 mmol/L (22-30) 01/03/22 02:21 Anion Gap 16 mmol/L 01/03/22 02:21 BUN 12 mg/dL (7-17) 01/03/22 02:21 Creatinine 0.9 mg/dL (0.6-1.2) 01/03/22 02:21 Estimated GFR > 60 ml/min 01/03/22 02:21 BUN/Creatinine Ratio 13 % 01/03/22 02:21 Glucose 116 mg/dL (65-100) H 01/03/22 02:21 Calcium 8.6 mg/dL (8.4-10.2) 01/03/22 02:21 HCG, Qual Negative (Negative) 01/03/22 02:21 Urine Color Yellow (Yellow) 01/03/22 Unknown Urine Turbidity Slightly-cloudy (Clear) 01/03/22 Unknown Urine pH 5.0 (5.0-7.0) 01/03/22 Unknown Ur Specific [place] 1.030 (1.003-1.030) 01/03/22 Unknown Urine Protein 100 mg/dl mg/dL (Negative) 01/03/22 Unknown Urine Glucose (UA) Neg mg/dL (Negative) 01/03/22 Unknown Urine Ketones Tr mg/dL (Negative) 01/03/22 Unknown Urine Blood Neg (Negative) 01/03/22 Unknown Urine Nitrite Neg (Negative) 01/03/22 Unknown Urine Bilirubin Neg (Negative) 01/03/22 Unknown Urine Urobilinogen 2.0 mg/dL (<2.0) 01/03/22 Unknown Ur Leukocyte Esterase Lg (Negative) 01/03/22 Unknown Urine WBC (Auto) 34.0 /HPF (0.0-6.0) H 01/03/22 Unknown Urine RBC (Auto) 24.0 /HPF (0.0-6.0) 01/03/22 Unknown U Epithel Cells (Auto) 14.0 /HPF (0-13.0) H 01/03/22 Unknown Urine Mucus 2+ /HPF 01/03/22 Unknown Salicylates < 0.3 mg/dL (2.8-20.0) L 01/03/22 02:21 Urine Opiates Screen Presumptive negative 01/03/22 Unknown Urine Methadone Screen Presumptive negative 01/03/22 Unknown Acetaminophen 5.0 ug/mL (10.0-30.0) L 01/03/22 02:21 Ur Barbiturates Screen Presumptive negative 01/03/22 Unknown Ur Phencyclidine Scrn Presumptive negative 01/03/22 Unknown Ur Amphetamines Screen Presumptive negative 01/03/22 Unknown U Benzodiazepines Scrn Presumptive negative 01/03/22 Unknown Urine Cocaine Screen Presumptive negative 01/03/22 Unknown U Marijuana (THC) Screen Presumptive negative 01/03/22 Unknown Drugs of Abuse Note Disclamer 01/03/22 Unknown Plasma/Serum Alcohol < 0.01 % (0-0.07) 01/03/22 02:21 SARS-CoV-2 (PCR) Negative (Negative) 01/03/22 09:00 Last Vital Signs Temp 97.2 F L 01/04/22 09:30 Pulse 97 H 01/04/22 09:30 Resp 18 01/04/22 09:30 BP 127/76 01/04/22 09:30 Pulse Ox 97 01/04/22 09:31
--- NOTE | 2022-01-04 12:06 | Emergency Department Report ---
Blank Doc - Documentation Documentation: Patient is still awaiting psychiatric disposition. She is still seeing things and hearing things. She has been medically cleared.
[2022-01-05] MEDS: NITROFURANTOIN MONOHYD/M-CRYST 100 MG CAP PO SCH (09:34)
[2022-01-05] MEDS: QUEtiapine 25 MG TAB PO SCH ×2 (09:36→13:35)
--- NOTE | 2022-01-05 10:56 | Progress Note ---
Subjective - Reason for Consult Consult date: 01/05/22 Reason for consult: Delusions - Chief Complaint Chief complaint: The patient was seen this morning. She reports feeling better. She states she is doing fine, denies suicidal ideation and denies hallucinations. REVIEW OF SYSTEMS Constitutional: Negative for weight loss ENT: Negative for stridor Respiratory: Negative for cough or hemoptysis All other systems reviewed and are negative MENTAL STATUS EXAMINATION General Appearance and Behavior: Age appropriate, good hygiene, wearing appropriate clothes, poor eye contact, calm, cooperative Cooperation: Participating/engaged, but Guarded Psychomotor Behavior: Psychomotor normal Mood: "ok" Affect and affective range: congruent with stated mood Thought Process: Goal directed Thought Content: Reality oriented Speech: normal tone and pace Suicidal Ideation: Denies Homicidal Ideation: Denies Hallucinations: Denies Delusions: None Impulse Control: Limited Insight and Judgment: Limited insight and judgment Memory: Limited Attention: Divided Orientation: Alert, oriented Assessment and Plan Bipolar Treatment Plan Case management Dc 1013 Continue Seroquel 25mg po BID Continue Seroquel 50mg po QHS Medical: per primary Sitter: defer to primary Disposition:Do not recommend acute psychiatric inpatient treatment. 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 Will sign off. Thanks Case staffed with Dr. Paz Medications and Allergies Mental Status Exam - Vital signs Last Vital Signs Temp 98.9 F 01/04/22 20:13 Pulse 91 H 01/04/22 20:13 Resp 16 01/04/22 22:14 BP 119/65 01/04/22 20:13 Pulse Ox 97 01/05/22 09:44
--- NOTE | 2022-01-05 13:44 | Event Note ---
Patient is discharged. Cleared by psychiatric team.
[2022-01-05 14:11] VITALS: BP 143/89
== END 2022-01-05 14:12 | disposition home or self-care (01) ==
LOC: ED 01:51
DX: F23 Brief psychotic disorder (principal); E11.9 Type 2 diabetes mellitus without complications; Z20.822 Contact with and (suspected) exposure to COVID-19; Z88.5 Allergy status to narcotic agent; Z79.899 Other long term (current) drug therapy
CPT/HCPCS: 36415; 80048; 80307; 81001; 84703; 85025; 87086; 99285; U0003; 80320; G0480

== ENCOUNTER 2022-05-05 16:44 | Emergency (ER) | payer SELFPAY ==
--- NOTE | 2022-05-05 16:55 | Event Note ---
ED Screening Note ED Screening Note: weakness p walking outside could not walk home called 911 This initial assessment/diagnostic orders/clinical plan/treatment(s) is/are subject to change based on patients health status, clinical progression and re- assessment by fellow clinical providers in the ED. Further treatment and workup at subsequent clinical providers discretion. Patient/guardian urged not to elope from the ED as their condition may be serious if not clinically assessed and managed. Initial orders include: labs ua
[2022-05-05 18:32] LABS: Alanine Aminotransferase 10 units/L (7-56); Albumin 4.7 g/dL (3.9-5); BUN/Creatinine Ratio 18; Blood Urea Nitrogen 16 mg/dL (7-17); Calcium 9.8 mg/dL (8.4-10.2); Hemolysis Index 62
[2022-05-05 19:12] LABS: Basophils % (Auto) 0.5 % (0.0-1.8); Lymphocytes # (Auto) 1.6 K/mm3 (1.2-5.4); Lymphocytes % (Auto) 17.4 % (13.4-35.0); Mean Corpuscular HGB Conc 31 % (30-34); Mean Corpuscular Volume 71 fl (79-97); Monocytes # (Auto) 0.5 K/mm3 (0.0-0.8); Monocytes % (Auto) 5.9 % (0.0-7.3); Red Blood Count 5.19 M/mm3 (3.65-5.03)
[2022-05-05 19:20] LABS: Hemoglobin 11.3 gm/dl (10.1-14.3); Red Cell Distribution Width 20.5 % (13.2-15.2)
[2022-05-05] MEDS ORDERED: SODIUM CHLORIDE 0.9% 1000 ML 1,000 ML IV ONE (22:03)
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
[2022-05-05 22:52] LABS: Platelet Count 134 K/mm3 (140-440)
[2022-05-06 01:57] LABS: Bacteria,Urine 1+ /HPF (Negative); Mucus,Urine FEW /HPF
[2022-05-06 03:41] LABS: Color,Urine Yellow (Yellow)
[2022-05-06 03:42] LABS: Bilirubin,Urine 1+ (Negative); Blood,Urine Negative (Negative); Protein,Urine <30 mg dL mg/dL (Negative)
[2022-05-06 03:43] LABS: Ictotest,Urine Negative (Negative); Urobilinogen,Urine 0.2 mg/dL (<2.0)
[2022-05-06 09:01] LABS: Basophils % (Manual) 0 % (0.0-1.8); Eosinophils % (Manual) 0 % (0.0-4.3); Total Cells Counted 100
[2022-05-06 09:05] LABS: Platelet Estimate Consistent w Auto
[2022-05-06] MEDS: levoFLOXacin 500 MG TAB PO SCH (11:30)
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
[2022-05-06] MEDS ORDERED: LORazepam 2 MG/ML VIAL IM PRN (17:01)
--- NOTE | 2022-05-06 17:04 | Event Note ---
Date: 05/06/22 The patient was evaluated in the emergency department for symptoms described in the history of present illness. He/she was evaluated in the context of the global COVID-19 pandemic, which necessitated consideration that the patient might be at risk for infection with the virus that causes COVID-19. Institutional protocols and algorithms that pertain to the evaluation of patients at risk for COVID-19 are in a state of rapid change based on information released by regulatory bodies including the CDC and federal and state organizations. These policies and algorithms were followed during the patient's care in the emergency department. Please note that these policies, procedures and recommendations changed on a rapid basis. Laboratory studies, vital signs, nursing documentation, ER documentation, and psychiatric documentation are reviewed and appreciated. Nursing team reports no acute events this morning or concerns. The patient is awake and in no acute distress The patient was deemed medically suitable for psychiatric disposition and placement during her initial ER evaluation. A Tylenol and aspirin level were not sent. Have requested that nursing team reconcile home medications. Patient has recurrent pyuria with bacteriuria with negative cultures in the past. The original treating provider has ordered levofloxacin. Have requested Tylenol and aspirin levels. Have requested that nursing team reconcile home medications. Nursing team reports no acute issues this evening Vital Signs 05/05/22 05/05/22 05/05/22 16:48 21:08 21:14 Temperature 98.4 F Pulse Rate 78 Respiratory 16 15 Rate Blood Pressure 110/88 [Left] O2 Sat by Pulse 96 98 99 Oximetry 05/06/22 05/06/22 05/06/22 11:50 11:57 15:52 Temperature 97.7 F 98.6 F Pulse Rate 72 67 Respiratory 18 16 Rate Blood Pressure 128/72 100/56 [Left] O2 Sat by Pulse 99 100 96 Oximetry Lab Results 05/05/22 05/05/22 05/05/22 Range/Units 17:13 17:13 17:13 WBC 9.0 (4.5-11.0) K/mm3 RBC 5.19 H (3.65-5.03) M/mm3 Hgb 11.3 (10.1-14.3) gm/dl Hct 37.0 (30.3-42.9) % MCV 71 L (79-97) fl MCH 22 L (28-32) pg MCHC 31 (30-34) % RDW 20.5 H (13.2-15.2) % Plt Count 134 L (140-440) K/mm3 Lymph % (Auto) 17.4 (13.4-35.0) % [place]ke % (Auto) 5.9 (0.0-7.3) % Eos % (Auto) 0.0 (0.0-4.3) % Baso % (Auto) 0.5 (0.0-1.8) % Lymph # (Auto) 1.6 (1.2-5.4) K/mm3 [place]ke # (Auto) 0.5 (0.0-0.8) K/mm3 Eos # (Auto) 0.0 (0.0-0.4) K/mm3 Baso # (Auto) 0.0 (0.0-0.1) K/mm3 Add Manual Diff Complete Total Counted 100 Seg Neutrophils % 76.2 H (40.0-70.0) % Seg Neuts % (Manual) 83.0 H (40.0-70.0) % Band Neutrophils % 0 % Lymphocytes % (Manual) 13.0 L (13.4-35.0) % Reactive Lymphs % (Man) 0 % Monocytes % (Manual) 4.0 (0.0-7.3) % Eosinophils % (Manual) 0 (0.0-4.3) % Basophils % (Manual) 0 (0.0-1.8) % Metamyelocytes % 0 % Myelocytes % 0 % Promyelocytes % 0 % Blast Cells % 0 % Nucleated RBC % Not Reportable Seg Neutrophils # 6.9 (1.8-7.7) K/mm3 Seg Neutrophils # Man 7.5 (1.8-7.7) K/mm3 Band Neutrophils # 0.0 K/mm3 Lymphocytes # (Manual) 1.2 (1.2-5.4) K/mm3 Abs React Lymphs (Man) 0.0 K/mm3 Monocytes # (Manual) 0.4 (0.0-0.8) K/mm3 Eosinophils # (Manual) 0.0 (0.0-0.4) K/mm3 Basophils # (Manual) 0.0 (0.0-0.1) K/mm3 Metamyelocytes # 0.0 K/mm3 Myelocytes # 0.0 K/mm3 Promyelocytes # 0.0 K/mm3 Blast Cells # 0.0 K/mm3 Hypersegmented Neuts Not Reportable Hyposegmented Neuts Not Reportable Hypogranular Neuts Not Reportable Smudge Cells Not Reportable Toxic Granulation Not Reportable Toxic Vacuolation Not Reportable Dohle Bodies Not Reportable Pelger-Huet Anomaly Not Reportable Luther Rods Not Reportable Platelet Estimate Consistent w auto Clumped Platelets Not Reportable Plt Clumps, EDTA Not Reportable Large Platelets Not Reportable Giant Platelets Not Reportable Platelet Satelliting Not Reportable Plt Morphology Comment Not Reportable RBC Morphology Not Reportable Dimorphic RBCs Not Reportable Polychromasia Not Reportable Hypochromasia Not Reportable Poikilocytosis Not Reportable Anisocytosis Not Reportable Microcytosis Not Reportable Macrocytosis Not Reportable Spherocytes Not Reportable Pappenheimer Bodies Not Reportable Sickle Cells Not Reportable Target Cells Not Reportable Tear Drop Cells Not Reportable Ovalocytes Not Reportable Helmet Cells Not Reportable [place] Bodies Not Reportable [place] Rings Not Reportable Mcclure Cells Not Reportable Bite Cells Not Reportable Crenated Cell Not Reportable Elliptocytes 1+ Acanthocytes (Spur) Not Reportable Rouleaux Not Reportable Hemoglobin C Crystals Not Reportable Schistocytes Not Reportable Malaria parasites Not Reportable Terrance Bodies Not Reportable Hem Pathologist Commnt Sent to pathology Sodium 145 (137-145) mmol/L Potassium 4.6 (3.6-5.0) mmol/L Chloride 108.5 H (98-107) mmol/L Carbon Dioxide 21 L (22-30) mmol/L Anion Gap 20 mmol/L BUN 16 (7-17) mg/dL Creatinine 0.9 (0.6-1.2) mg/dL Estimated GFR > 60 ml/min BUN/Creatinine Ratio 18 % Glucose 80 (65-100) mg/dL Calcium 9.8 (8.4-10.2) mg/dL Phosphorus 4.40 (2.5-4.5) mg/dL Magnesium 2.20 (1.7-2.3) mg/dL Total Bilirubin 0.30 (0.1-1.2) mg/dL AST 21 (5-40) units/L ALT 10 (7-56) units/L Alkaline Phosphatase 60 (35-129) units/L Troponin T < 0.010 (0.00-0.029) ng/mL Total Protein 8.3 H (6.3-8.2) g/dL Albumin 4.7 (3.9-5) g/dL Albumin/Globulin Ratio 1.3 % TSH 0.670 (0.270-4.200) mlU/mL Urine Color (Yellow) Urine Turbidity (Clear) Urine pH (5.0-7.0) Ur Specific [place] (1.003-1.030) Urine Protein (Negative) mg/dL Urine Glucose (UA) (Negative) mg/dL Urine Ketones (Negative) mg/dL Urine Blood (Negative) Urine Nitrite (Negative) Ur Reducing Substances Urine Bilirubin (Negative) Urine Ictotest (Negative) Urine Urobilinogen (<2.0) mg/dL Ur Leukocyte Esterase (Negative) Urine WBC (Auto) (0.0-6.0) /HPF Urine RBC (Auto) (0.0-6.0) /HPF U Epithel Cells (Auto) (0-13.0) /HPF Urine Bacteria (Auto) (Negative) /HPF Urine Mucus /HPF Coronavirus (PCR) (Negative) 05/05/22 05/06/22 Range/Units 21:04 13:23 WBC (4.5-11.0) K/mm3 RBC (3.65-5.03) M/mm3 Hgb (10.1-14.3) gm/dl Hct (30.3-42.9) % MCV (79-97) fl MCH (28-32) pg MCHC (30-34) % RDW (13.2-15.2) % Plt Count (140-440) K/mm3 Lymph % (Auto) (13.4-35.0) % Parke % (Auto) (0.0-7.3) % Eos % (Auto) (0.0-4.3) % Baso % (Auto) (0.0-1.8) % Lymph # (Auto) (1.2-5.4) K/mm3 [place] # (Auto) (0.0-0.8) K/mm3 Eos # (Auto) (0.0-0.4) K/mm3 Baso # (Auto) (0.0-0.1) K/mm3 Add Manual Diff Total Counted Seg Neutrophils % (40.0-70.0) % Seg Neuts % (Manual) (40.0-70.0) % Band Neutrophils % % Lymphocytes % (Manual) (13.4-35.0) % Reactive Lymphs % (Man) % Monocytes % (Manual) (0.0-7.3) % Eosinophils % (Manual) (0.0-4.3) % Basophils % (Manual) (0.0-1.8) % Metamyelocytes % % Myelocytes % % Promyelocytes % % Blast Cells % % Nucleated RBC % Seg Neutrophils # (1.8-7.7) K/mm3 Seg Neutrophils # Man (1.8-7.7) K/mm3 Band Neutrophils # K/mm3 Lymphocytes # (Manual) (1.2-5.4) K/mm3 Abs React Lymphs (Man) K/mm3 Monocytes # (Manual) (0.0-0.8) K/mm3 Eosinophils # (Manual) (0.0-0.4) K/mm3 Basophils # (Manual) (0.0-0.1) K/mm3 Metamyelocytes # K/mm3 Myelocytes # K/mm3 Promyelocytes # K/mm3 Blast Cells # K/mm3 Hypersegmented Neuts Hyposegmented Neuts Hypogranular Neuts Smudge Cells Toxic Granulation Toxic Vacuolation Dohle Bodies Pelger-Huet Anomaly Luther Rods Platelet Estimate Clumped Platelets Plt Clumps, EDTA Large Platelets Giant Platelets Platelet Satelliting Plt Morphology Comment RBC Morphology Dimorphic RBCs Polychromasia Hypochromasia Poikilocytosis Anisocytosis Microcytosis Macrocytosis Spherocytes Pappenheimer Bodies Sickle Cells Target Cells Tear Drop Cells Ovalocytes Helmet Cells [place] Bodies [place] Rings Mcclure Cells Bite Cells Crenated Cell Elliptocytes Acanthocytes (Spur) Rouleaux Hemoglobin C Crystals Schistocytes Malaria parasites Terrance Bodies Hem Pathologist Commnt Sodium (137-145) mmol/L Potassium (3.6-5.0) mmol/L Chloride (98-107) mmol/L Carbon Dioxide (22-30) mmol/L Anion Gap mmol/L BUN (7-17) mg/dL Creatinine (0.6-1.2) mg/dL Estimated GFR ml/min BUN/Creatinine Ratio % Glucose (65-100) mg/dL Calcium (8.4-10.2) mg/dL Phosphorus (2.5-4.5) mg/dL Magnesium (1.7-2.3) mg/dL Total Bilirubin (0.1-1.2) mg/dL AST (5-40) units/L ALT (7-56) units/L Alkaline Phosphatase (35-129) units/L Troponin T (0.00-0.029) ng/mL Total Protein (6.3-8.2) g/dL Albumin (3.9-5) g/dL Albumin/Globulin Ratio % TSH (0.270-4.200) mlU/mL Urine Color Yellow (Yellow) Urine Turbidity Clear (Clear) Urine pH 6.0 (5.0-7.0) Ur Specific [place] > 1.030 H (1.003-1.030) Urine Protein <30 mg dl (Negative) mg/dL Urine Glucose (UA) Negative (Negative) mg/dL Urine Ketones 3+ (Negative) mg/dL Urine Blood Negative (Negative) Urine Nitrite Negative (Negative) Ur Reducing Substances Not Reportable Urine Bilirubin 1+ (Negative) Urine Ictotest Negative (Negative) Urine Urobilinogen 0.2 (<2.0) mg/dL Ur Leukocyte Esterase 2+ (Negative) Urine WBC (Auto) 37.0 H (0.0-6.0) /HPF Urine RBC (Auto) 77.0 (0.0-6.0) /HPF U Epithel Cells (Auto) 10.0 (0-13.0) /HPF Urine Bacteria (Auto) 1+ (Negative) /HPF Urine Mucus Few /HPF Coronavirus (PCR) Negative (Negative) Serum toxicology studies are unremarkable. Patient remains medically suitable for psychiatric placement, consultation and disposition at this time Vital Signs 05/05/22 05/05/22 05/05/22 16:48 21:08 21:14 Temperature 98.4 F Pulse Rate 78 Respiratory 16 15 Rate Blood Pressure 110/88 [Left] O2 Sat by Pulse 96 98 99 Oximetry 05/06/22 05/06/22 05/06/22 11:50 11:57 15:52 Temperature 97.7 F 98.6 F Pulse Rate 72 67 Respiratory 18 16 Rate Blood Pressure 128/72 100/56 [Left] O2 Sat by Pulse 99 100 96 Oximetry
[2022-05-06] MEDS ORDERED: traZODone 50 MG TAB PO PRN (22:00)
[2022-05-07] MEDS ORDERED: ACETAMINOPHEN 325 MG TAB PO ONE (02:06)
--- NOTE | 2022-05-07 02:06 | Event Note ---
I received call from nurse to evaluate patient due to complaint of 8/10 abdominal pain. Patient states that she has "a little bit" lower abdominal pain. She is in no acute distress at time of my assessment. When palpating her lower abdomen she states he "hurts a little" but continues to give the pain rating 8/out of 10. No other symptoms reported. As per medical record review patient is currently on Levaquin for UTI and Her pain is currently at the bladder area. Tylenol will be ordered
[2022-05-07] MEDS: levoFLOXacin 500 MG TAB PO SCH (09:41)
--- NOTE | 2022-05-07 13:32 | Progress Note ---
Subjective - Reason for Consult Reason for consult: Bipolar - Chief Complaint Chief complaint: Subjective DATE SEEN:05/07/2022 I interviewed the patient this morning. Patient states that she is "doing pretty good" this morning. Patient states that she slept well and ate well too. Patient denies any SI/HI this morning.Patient was told to ask the staff for help if any of these symptoms increase. Medical records reviewed and patient's progress was discussed with unit staff. Patient waiting on inpatient placement. Review of Symptoms: Constitutional: Negative for weight loss ENT: Negative for stridor Respiratory: Negative for cough or hemoptysis All other systems reviewed and are negative MSE Appearance: Wearing appropriate clothing. Good hygiene Behavior: Pleasant and cooperative. Mood: "Good" Affect: Congruent with stated mood Thought Process: Goal directed Speech: Normal rate. Thought Content Harmfulness Denies SI/HI Hallucinations: patient denies Delusions: none elicited Consciousness: alert. Cognition/Memory: normal. Insight/Judgment: Limited. Treatment Plan Paient waiting on inpatient treatment Will continue q15 min safety checks. Will encourage the use of environmental modifications and non-pharmacologic approaches for the management of behavioral and psychological symptoms. Will continue current psych medications Monitor for medication side effects. The patient will continue on medications for physical illnesses, and Hospitalist will closely monitor these Continue intensive physical and occupational therapies. Monitor patient's mood, sleep, appetite, and behavior closely. Will provide a safe and therapeutic environment for patient. Mental Status Exam - Vital signs Last Vital Signs Temp 99.2 F 05/07/22 09:12 Pulse 95 H 05/07/22 09:12 Resp 18 05/07/22 09:12 BP 110/78 05/07/22 09:12 Pulse Ox 100 05/07/22 09:12
--- NOTE | 2022-05-07 15:37 | Event Note ---
Date: 05/07/22 The patient was evaluated in the emergency department for symptoms described in the history of present illness. He/she was evaluated in the context of the global COVID-19 pandemic, which necessitated consideration that the patient might be at risk for infection with the virus that causes COVID-19. Institutional protocols and algorithms that pertain to the evaluation of patients at risk for COVID-19 are in a state of rapid change based on information released by regulatory bodies including the CDC and federal and state organizations. These policies and algorithms were followed during the patient's care in the emergency department. Please note that these policies, procedures and recommendations changed on a rapid basis. Laboratory studies, vital signs, nursing documentation, ER documentation, and psychiatric documentation are reviewed and appreciated. Nursing team reports no acute events this morning or concerns. The patient is awake and does not appear to be in any acute distress The patient was deemed medically suitable for psychiatric disposition and placement during her initial ER evaluation. The patient continues to remain medically suitable for psychiatric placement and disposition. She is currently pending psychiatric placement. Vital Signs 05/05/22 05/05/22 05/05/22 16:48 21:08 21:14 Temperature 98.4 F Pulse Rate 78 Respiratory 16 15 Rate Blood Pressure 110/88 [Left] O2 Sat by Pulse 96 98 99 Oximetry 05/06/22 05/06/22 05/06/22 11:50 11:57 15:52 Temperature 97.7 F 98.6 F Pulse Rate 72 67 Respiratory 18 16 Rate Blood Pressure 128/72 100/56 [Left] O2 Sat by Pulse 99 100 96 Oximetry 05/06/22 05/07/22 05/07/22 21:04 04:34 09:12 Temperature 99.5 F 98.6 F 99.2 F Pulse Rate 89 60 95 H Respiratory 16 16 18 Rate Blood Pressure 123/86 90/50 110/78 [Left] O2 Sat by Pulse 96 100 100 Oximetry Lab Results 05/05/22 05/05/22 05/05/22 Range/Units 17:13 17:13 17:13 WBC 9.0 (4.5-11.0) K/mm3 RBC 5.19 H (3.65-5.03) M/mm3 Hgb 11.3 (10.1-14.3) gm/dl Hct 37.0 (30.3-42.9) % MCV 71 L (79-97) fl MCH 22 L (28-32) pg MCHC 31 (30-34) % RDW 20.5 H (13.2-15.2) % Plt Count 134 L (140-440) K/mm3 Lymph % (Auto) 17.4 (13.4-35.0) % [place] % (Auto) 5.9 (0.0-7.3) % Eos % (Auto) 0.0 (0.0-4.3) % Baso % (Auto) 0.5 (0.0-1.8) % Lymph # (Auto) 1.6 (1.2-5.4) K/mm3 [place] # (Auto) 0.5 (0.0-0.8) K/mm3 Eos # (Auto) 0.0 (0.0-0.4) K/mm3 Baso # (Auto) 0.0 (0.0-0.1) K/mm3 Add Manual Diff Complete Total Counted 100 Seg Neutrophils % 76.2 H (40.0-70.0) % Seg Neuts % (Manual) 83.0 H (40.0-70.0) % Band Neutrophils % 0 % Lymphocytes % (Manual) 13.0 L (13.4-35.0) % Reactive Lymphs % (Man) 0 % Monocytes % (Manual) 4.0 (0.0-7.3) % Eosinophils % (Manual) 0 (0.0-4.3) % Basophils % (Manual) 0 (0.0-1.8) % Metamyelocytes % 0 % Myelocytes % 0 % Promyelocytes % 0 % Blast Cells % 0 % Nucleated RBC % Not Reportable Seg Neutrophils # 6.9 (1.8-7.7) K/mm3 Seg Neutrophils # Man 7.5 (1.8-7.7) K/mm3 Band Neutrophils # 0.0 K/mm3 Lymphocytes # (Manual) 1.2 (1.2-5.4) K/mm3 Abs React Lymphs (Man) 0.0 K/mm3 Monocytes # (Manual) 0.4 (0.0-0.8) K/mm3 Eosinophils # (Manual) 0.0 (0.0-0.4) K/mm3 Basophils # (Manual) 0.0 (0.0-0.1) K/mm3 Metamyelocytes # 0.0 K/mm3 Myelocytes # 0.0 K/mm3 Promyelocytes # 0.0 K/mm3 Blast Cells # 0.0 K/mm3 Hypersegmented Neuts Not Reportable Hyposegmented Neuts Not Reportable Hypogranular Neuts Not Reportable Smudge Cells Not Reportable Toxic Granulation Not Reportable Toxic Vacuolation Not Reportable Dohle Bodies Not Reportable Pelger-Huet Anomaly Not Reportable Luther Rods Not Reportable Platelet Estimate Consistent w auto Clumped Platelets Not Reportable Plt Clumps, EDTA Not Reportable Large Platelets Not Reportable Giant Platelets Not Reportable Platelet Satelliting Not Reportable Plt Morphology Comment Not Reportable RBC Morphology Not Reportable Dimorphic RBCs Not Reportable Polychromasia Not Reportable Hypochromasia Not Reportable Poikilocytosis Not Reportable Anisocytosis Not Reportable Microcytosis Not Reportable Macrocytosis Not Reportable Spherocytes Not Reportable Pappenheimer Bodies Not Reportable Sickle Cells Not Reportable Target Cells Not Reportable Tear Drop Cells Not Reportable Ovalocytes Not Reportable Helmet Cells Not Reportable [place] Bodies Not Reportable [place] Rings Not Reportable [place] Cells Not Reportable Bite Cells Not Reportable Crenated Cell Not Reportable Elliptocytes 1+ Acanthocytes (Spur) Not Reportable Rouleaux Not Reportable Hemoglobin C Crystals Not Reportable Schistocytes Not Reportable Malaria parasites Not Reportable Terrance Bodies Not Reportable Hem Pathologist Commnt Sent to pathology Sodium 145 (137-145) mmol/L Potassium 4.6 (3.6-5.0) mmol/L Chloride 108.5 H (98-107) mmol/L Carbon Dioxide 21 L (22-30) mmol/L Anion Gap 20 mmol/L BUN 16 (7-17) mg/dL Creatinine 0.9 (0.6-1.2) mg/dL Estimated GFR > 60 ml/min BUN/Creatinine Ratio 18 % Glucose 80 (65-100) mg/dL Calcium 9.8 (8.4-10.2) mg/dL Phosphorus 4.40 (2.5-4.5) mg/dL Magnesium 2.20 (1.7-2.3) mg/dL Total Bilirubin 0.30 (0.1-1.2) mg/dL AST 21 (5-40) units/L ALT 10 (7-56) units/L Alkaline Phosphatase 60 (35-129) units/L Troponin T < 0.010 (0.00-0.029) ng/mL Total Protein 8.3 H (6.3-8.2) g/dL Albumin 4.7 (3.9-5) g/dL Albumin/Globulin Ratio 1.3 % TSH 0.670 (0.270-4.200) mlU/mL Urine Color (Yellow) Urine Turbidity (Clear) Urine pH (5.0-7.0) Ur Specific [place] (1.003-1.030) Urine Protein (Negative) mg/dL Urine Glucose (UA) (Negative) mg/dL Urine Ketones (Negative) mg/dL Urine Blood (Negative) Urine Nitrite (Negative) Ur Reducing Substances Urine Bilirubin (Negative) Urine Ictotest (Negative) Urine Urobilinogen (<2.0) mg/dL Ur Leukocyte Esterase (Negative) Urine WBC (Auto) (0.0-6.0) /HPF Urine RBC (Auto) (0.0-6.0) /HPF U Epithel Cells (Auto) (0-13.0) /HPF Urine Bacteria (Auto) (Negative) /HPF Urine Mucus /HPF Salicylates (2.8-20.0) mg/dL Acetaminophen (10.0-30.0) ug/mL Coronavirus (PCR) (Negative) 05/05/22 05/06/22 05/06/22 Range/Units 21:04 13:23 18:07 WBC (4.5-11.0) K/mm3 RBC (3.65-5.03) M/mm3 Hgb (10.1-14.3) gm/dl Hct (30.3-42.9) % MCV (79-97) fl MCH (28-32) pg MCHC (30-34) % RDW (13.2-15.2) % Plt Count (140-440) K/mm3 Lymph % (Auto) (13.4-35.0) % [place] % (Auto) (0.0-7.3) % Eos % (Auto) (0.0-4.3) % Baso % (Auto) (0.0-1.8) % Lymph # (Auto) (1.2-5.4) K/mm3 [place] # (Auto) (0.0-0.8) K/mm3 Eos # (Auto) (0.0-0.4) K/mm3 Baso # (Auto) (0.0-0.1) K/mm3 Add Manual Diff Total Counted Seg Neutrophils % (40.0-70.0) % Seg Neuts % (Manual) (40.0-70.0) % Band Neutrophils % % Lymphocytes % (Manual) (13.4-35.0) % Reactive Lymphs % (Man) % Monocytes % (Manual) (0.0-7.3) % Eosinophils % (Manual) (0.0-4.3) % Basophils % (Manual) (0.0-1.8) % Metamyelocytes % % Myelocytes % % Promyelocytes % % Blast Cells % % Nucleated RBC % Seg Neutrophils # (1.8-7.7) K/mm3 Seg Neutrophils # Man (1.8-7.7) K/mm3 Band Neutrophils # K/mm3 Lymphocytes # (Manual) (1.2-5.4) K/mm3 Abs React Lymphs (Man) K/mm3 Monocytes # (Manual) (0.0-0.8) K/mm3 Eosinophils # (Manual) (0.0-0.4) K/mm3 Basophils # (Manual) (0.0-0.1) K/mm3 Metamyelocytes # K/mm3 Myelocytes # K/mm3 Promyelocytes # K/mm3 Blast Cells # K/mm3 Hypersegmented Neuts Hyposegmented Neuts Hypogranular Neuts Smudge Cells Toxic Granulation Toxic Vacuolation Dohle Bodies Pelger-Huet Anomaly Luther Rods Platelet Estimate Clumped Platelets Plt Clumps, EDTA Large Platelets Giant Platelets Platelet Satelliting Plt Morphology Comment RBC Morphology Dimorphic RBCs Polychromasia Hypochromasia Poikilocytosis Anisocytosis Microcytosis Macrocytosis Spherocytes Pappenheimer Bodies Sickle Cells Target Cells Tear Drop Cells Ovalocytes Helmet Cells [place] Bodies [place] Rings [place] Cells Bite Cells Crenated Cell Elliptocytes Acanthocytes (Spur) Rouleaux Hemoglobin C Crystals Schistocytes Malaria parasites Terrance Bodies Hem Pathologist Commnt Sodium (137-145) mmol/L Potassium (3.6-5.0) mmol/L Chloride (98-107) mmol/L Carbon Dioxide (22-30) mmol/L Anion Gap mmol/L BUN (7-17) mg/dL Creatinine (0.6-1.2) mg/dL Estimated GFR ml/min BUN/Creatinine Ratio % Glucose (65-100) mg/dL Calcium (8.4-10.2) mg/dL Phosphorus (2.5-4.5) mg/dL Magnesium (1.7-2.3) mg/dL Total Bilirubin (0.1-1.2) mg/dL AST (5-40) units/L ALT (7-56) units/L Alkaline Phosphatase (35-129) units/L Troponin T (0.00-0.029) ng/mL Total Protein (6.3-8.2) g/dL Albumin (3.9-5) g/dL Albumin/Globulin Ratio % TSH (0.270-4.200) mlU/mL Urine Color Yellow (Yellow) Urine Turbidity Clear (Clear) Urine pH 6.0 (5.0-7.0) Ur Specific [place] > 1.030 H (1.003-1.030) Urine Protein <30 mg dl (Negative) mg/dL Urine Glucose (UA) Negative (Negative) mg/dL Urine Ketones 3+ (Negative) mg/dL Urine Blood Negative (Negative) Urine Nitrite Negative (Negative) Ur Reducing Substances Not Reportable Urine Bilirubin 1+ (Negative) Urine Ictotest Negative (Negative) Urine Urobilinogen 0.2 (<2.0) mg/dL Ur Leukocyte Esterase 2+ (Negative) Urine WBC (Auto) 37.0 H (0.0-6.0) /HPF Urine RBC (Auto) 77.0 (0.0-6.0) /HPF U Epithel Cells (Auto) 10.0 (0-13.0) /HPF Urine Bacteria (Auto) 1+ (Negative) /HPF Urine Mucus Few /HPF Salicylates < 0.3 L (2.8-20.0) mg/dL Acetaminophen (10.0-30.0) ug/mL Coronavirus (PCR) Negative (Negative) 05/06/22 Range/Units 18:07 WBC (4.5-11.0) K/mm3 RBC (3.65-5.03) M/mm3 Hgb (10.1-14.3) gm/dl Hct (30.3-42.9) % MCV (79-97) fl MCH (28-32) pg MCHC (30-34) % RDW (13.2-15.2) % Plt Count (140-440) K/mm3 Lymph % (Auto) (13.4-35.0) % [place] % (Auto) (0.0-7.3) % Eos % (Auto) (0.0-4.3) % Baso % (Auto) (0.0-1.8) % Lymph # (Auto) (1.2-5.4) K/mm3 [place] # (Auto) (0.0-0.8) K/mm3 Eos # (Auto) (0.0-0.4) K/mm3 Baso # (Auto) (0.0-0.1) K/mm3 Add Manual Diff Total Counted Seg Neutrophils % (40.0-70.0) % Seg Neuts % (Manual) (40.0-70.0) % Band Neutrophils % % Lymphocytes % (Manual) (13.4-35.0) % Reactive Lymphs % (Man) % Monocytes % (Manual) (0.0-7.3) % Eosinophils % (Manual) (0.0-4.3) % Basophils % (Manual) (0.0-1.8) % Metamyelocytes % % Myelocytes % % Promyelocytes % % Blast Cells % % Nucleated RBC % Seg Neutrophils # (1.8-7.7) K/mm3 Seg Neutrophils # Man (1.8-7.7) K/mm3 Band Neutrophils # K/mm3 Lymphocytes # (Manual) (1.2-5.4) K/mm3 Abs React Lymphs (Man) K/mm3 Monocytes # (Manual) (0.0-0.8) K/mm3 Eosinophils # (Manual) (0.0-0.4) K/mm3 Basophils # (Manual) (0.0-0.1) K/mm3 Metamyelocytes # K/mm3 Myelocytes # K/mm3 Promyelocytes # K/mm3 Blast Cells # K/mm3 Hypersegmented Neuts Hyposegmented Neuts Hypogranular Neuts Smudge Cells Toxic Granulation Toxic Vacuolation Dohle Bodies Pelger-Huet Anomaly Luther Rods Platelet Estimate Clumped Platelets Plt Clumps, EDTA Large Platelets Giant Platelets Platelet Satelliting Plt Morphology Comment RBC Morphology Dimorphic RBCs Polychromasia Hypochromasia Poikilocytosis Anisocytosis Microcytosis Macrocytosis Spherocytes Pappenheimer Bodies Sickle Cells Target Cells Tear Drop Cells Ovalocytes Helmet Cells [place] Bodies [place] Rings [place] Cells Bite Cells Crenated Cell Elliptocytes Acanthocytes (Spur) Rouleaux Hemoglobin C Crystals Schistocytes Malaria parasites Terrance Bodies Hem Pathologist Commnt Sodium (137-145) mmol/L Potassium (3.6-5.0) mmol/L Chloride (98-107) mmol/L Carbon Dioxide (22-30) mmol/L Anion Gap mmol/L BUN (7-17) mg/dL Creatinine (0.6-1.2) mg/dL Estimated GFR ml/min BUN/Creatinine Ratio % Glucose (65-100) mg/dL Calcium (8.4-10.2) mg/dL Phosphorus (2.5-4.5) mg/dL Magnesium (1.7-2.3) mg/dL Total Bilirubin (0.1-1.2) mg/dL AST (5-40) units/L ALT (7-56) units/L Alkaline Phosphatase (35-129) units/L Troponin T (0.00-0.029) ng/mL Total Protein (6.3-8.2) g/dL Albumin (3.9-5) g/dL Albumin/Globulin Ratio % TSH (0.270-4.200) mlU/mL Urine Color (Yellow) Urine Turbidity (Clear) Urine pH (5.0-7.0) Ur Specific [place] (1.003-1.030) Urine Protein (Negative) mg/dL Urine Glucose (UA) (Negative) mg/dL Urine Ketones (Negative) mg/dL Urine Blood (Negative) Urine Nitrite (Negative) Ur Reducing Substances Urine Bilirubin (Negative) Urine Ictotest (Negative) Urine Urobilinogen (<2.0) mg/dL Ur Leukocyte Esterase (Negative) Urine WBC (Auto) (0.0-6.0) /HPF Urine RBC (Auto) (0.0-6.0) /HPF U Epithel Cells (Auto) (0-13.0) /HPF Urine Bacteria (Auto) (Negative) /HPF Urine Mucus /HPF Salicylates (2.8-20.0) mg/dL Acetaminophen 5.0 L (10.0-30.0) ug/mL Coronavirus (PCR) (Negative)
[2022-05-07 18:34] LABS: Amphetamine Screen,Urine Negative; Benzodiazepines Screen,Urine Negative; Cannabinoid Screen,Urine Negative; Cocaine Screen,Urine Negative; Methadone Screen,Urine Negative; Opiate Screen,Urine Negative
[2022-05-07] MEDS ORDERED: LACTATED RINGERS 2,000 ML IV ONE (18:49)
[2022-05-08 02:09] VITALS: BP 120/60
[2022-05-08] MEDS ORDERED: LACTATED RINGERS 2,000 ML IV ONE (04:59)
[2022-05-08] MEDS ORDERED: SODIUM CHLORIDE 0.9% 1000 ML 1,000 ML ONE (05:49)
== END 2022-05-08 10:07 ==
LOC: ED 16:44
DX: R53.1 Weakness (principal); F20.9 Schizophrenia, unspecified; Z20.822 Contact with and (suspected) exposure to COVID-19; E11.9 Type 2 diabetes mellitus without complications; Z79.899 Other long term (current) drug therapy
CPT/HCPCS: 36415; 80053; 80307; 81001; 83735; 84100; 84443; 84484; 85007; 85025; 87086; 96360; 96361; 99285; J7030; J7120; U0003; 80320; 99284; G0480